=== PATIENT | male | born 1940 | race Caucasian/White ===

== ENCOUNTER 2016-07-04 08:03 | Inpatient (IN) | payer OTHER ==
[~2016-07-04] VITALS: Ht 188 cm; Wt 92.1 kg
[~2016-07-04 08:03] MED LIST: /THIA10TA PO; ALLO100T OR; ASPI325T OR; B COCAP5 PO; FOLI1TAB PO; HYDR12.55 PO; INDO50CA2 OR; IRON CR PO; LISI40TA OR; LOPR50TA OR; LOSA50TA20 PO; MULTIVIT PO; NORV5TAB PO; OMEP20TA7 OR; PERC5TAB8 PO; POTASSIUM GLUCONATE PO; SIMV20TA2 OR; SIMVPOW2 PO
[2016-07-04] MEDS ORDERED: SYMBICORT (08:28)
[2016-07-04] MEDS ORDERED: FURO40TA2 (08:28)
[2016-07-04] MEDS ORDERED: DOXY100C37 (08:28)
[2016-07-04] MEDS ORDERED: METO50TA2 (08:28)
[2016-07-04] MEDS ORDERED: SIMV20TA2 (08:28)
[2016-07-04] MEDS ORDERED: HYDR-4267 (08:28)
[2016-07-04] MEDS ORDERED: ALLO15TA (08:28)
[2016-07-04] MEDS ORDERED: VITA200016 PO (08:28)
[2016-07-04] MEDS ORDERED: ALBU17IN (08:28)
[2016-07-04 09:12] LABS: BASO # 0.1 K/mm3 (0.0-0.2); BASO % 0.8 % (0.0-1.0); EOS # 0.3 K/mm3 (0.0-0.50); EOS % 4.1 % (0.0-3.0); LARGE UNSTAINED CELL # 0.3 K/mm3 (0.0-0.4); LARGE UNSTAINED CELL % 4.7 % (0.0-4.0); LYMPH # 3.4 K/mm3 (1.5-4.5); LYMPH % 48.6 % (24.0-44.0); MEAN CORPUSCULAR HEMOGLOBIN 31.9 pg (27.0-33.0); MEAN CORPUSCULAR HGB CONC 31.5 g/dl (32.0-36.5); MEAN CORPUSCULAR VOLUME 101.2 fl (80.0-96.0); MONO # 0.3 K/mm3 (0.0-0.8); NEUTROPHILS # 2.6 K/mm3 (1.8-7.7); NEUTROPHILS % 36.9 % (36.0-66.0); PLATELET COUNT, AUTOMATED 339 k/mm3 (150-450); RED CELL DISTRIBUTION WIDTH 14.4 % (11.5-14.5); WHITE BLOOD COUNT 6.9 K/mm3 (4.0-10.0)
[2016-07-04 09:25] LABS: BACTERIA, URINE NONE SEEN; HYALINE CAST, URINE NONE SEEN /lpf (0-1); MICROSCOPIC EXAM PERFORMED; MICROSCOPIC INDICATED? MAN YES (NO); RBC, URINE TNTC /hpf (0-3); SQUAMOUS EPITHELIAL CELL URINE NONE SEEN /hpf (SMALL AMT)
[2016-07-04 09:38] LABS: ALBUMIN 3.1 GM/DL (3.2-5.2); ALBUMIN/GLOBULIN RATIO 0.54 (1.00-1.93); BILIRUBIN,DIRECT 0.1 MG/DL (0.0-0.2); BILIRUBIN,TOTAL 0.4 MG/DL (0.2-1.0); CALCIUM LEVEL 8.5 MG/DL (8.8-10.2); CREATININE FOR GFR 4.89 MG/DL (0.70-1.30); GLOMERULAR FILTRATION RATE 12.4 (>42); POTASSIUM SERUM 4.8 MEQ/L (3.5-5.1); TOTAL PROTEIN 8.8 GM/DL (6.4-8.2)
[2016-07-04 09:40] LABS: INR 1.15
--- NOTE | 2016-07-04 10:54 | REP ---
CT abdomen pelvis without IV or oral contrast: Renal stone protocol. History: Hematuria. Comparison study is from November 04, 2015. CT findings: Digital preliminary conference translator radiograph shows vascular calcification. The patient is apparently unable to raise his arms. There is no evidence of infiltrate or mass in the visualized lung leal. No pleural effusion is seen. The liver and spleen are normal in size, homogeneous in texture. There are a few granulomatous calcifications in the spleen again noted. There is also a granulomatous calcification in the left lobe of the liver unchanged from the comparison study. No adrenal lesion is seen on either side. There is pancolonic diverticulosis without CT evidence of diverticulitis. Extensive vascular calcification is noted. Prostate gland is prominent and somewhat eccentric in the lower pelvis shifted somewhat to the left. The urinary bladder is quite distended consistent with bladder outlet obstruction. There is diffuse bladder wall thickening. The bladder fills the pelvis to the level of the umbilicus. There is a bilateral moderate to marked hydronephrosis and hydroureter. This is new on the right when compared with the prior study of November 04, 2015. It is increased significantly on the left compared to the prior study. There are multiple bilateral renal cortical cysts again seen unchanged. No intrarenal calculus is observed on either side. 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 No left ureteral calculus is observed. There are some phleboliths adjacent to the distal ureter on the right. No right ureteral calculus is seen. Both ureterovesical junctions are somewhat elevated due to bladder dilation and prostate enlargement. No pelvic mass or adenopathy is appreciated. No evidence of free air or abnormal fluid collection. Impression: Findings consistent with bladder outlet obstruction with marked distension of the urinary bladder and marked bilateral hydronephrosis and hydroureter. This is new on the right and increased on the left when compared with the November 04, 2015 prior study. No urinary tract calculus seen. Prostate enlargement. Pancolonic diverticulosis. Signed by Blas Simon MD 07/04/2016 03:37 P
[2016-07-04] MEDS ORDERED: LIDOCAINE 2% 5ML JELLY UROJET TOP ONE (11:45)
[2016-07-04] MEDS ORDERED: LIDOCAINE VISCOUS 2% SOLN 15ML UDC TOP ONE (11:45)
[2016-07-04] MEDS ORDERED: ALBU17IN INH (12:09)
[2016-07-04] MEDS ORDERED: ALLO15TA PO ×2 (12:10→12:12)
[2016-07-04] MEDS ORDERED: HYDR-4267 PO (12:15)
[2016-07-04] MEDS ORDERED: METO50TA2 PO (12:15)
[2016-07-04] MEDS ORDERED: FURO40TA2 PO (12:15)
[2016-07-04] MEDS ORDERED: [UNRECOGNIZED DRUG - CODE] PO (12:15)
[2016-07-04] MEDS ORDERED: OMEP20CA3 PO (12:16)
[2016-07-04] MEDS ORDERED: ZOCO20TA PO (12:16)
[2016-07-04] MEDS ORDERED: VITATAB11 PO (12:18)
[2016-07-04] MEDS ORDERED: SYMB16INH INH (12:19)
[2016-07-04] MEDS ORDERED: MAGN500T5 PO (12:20)
[2016-07-04] MEDS ORDERED: ZYLO300T4 PO (12:22)
[2016-07-04] MEDS: NS 1,000 ML IV SCH (12:25)
[2016-07-04] MEDS ORDERED: ALBUTEROL 90 MCG/ACT 8GM HFA INHALER INH PRN (12:30)
[2016-07-04] MEDS ORDERED: ONDANSETRON 4MG/2ML VIAL (J2405) IV PRN (12:30)
[2016-07-04 15:30] VITALS: BP 154/99
[2016-07-04 16:00] VITALS: BP 140/88
[2016-07-04] MEDS ORDERED: LORazepam 2 MG TAB PO PRN (16:00)
[2016-07-04 16:42] LABS: CALCIUM LEVEL 8.2 MG/DL (8.8-10.2); CREATININE FOR GFR 4.75 MG/DL (0.70-1.30); GLOMERULAR FILTRATION RATE 12.8 (>42); MAGNESIUM LEVEL 2.4 MG/DL (1.8-2.4); PHOSPHORUS LEVEL 6.8 MG/DL (2.5-4.9); POTASSIUM SERUM 5.1 MEQ/L (3.5-5.1)
--- NOTE | 2016-07-04 16:48 | HPEPDOC ---
Medical History and Physical Date of Admission Jul 04, 2016 at 12:25 History and Physical PRIMARY CARE PROVIDER: Dr. Eduardo Lubin ATTENDING: Paul Richmond MD CHIEF COMPLAINT: Hematuria HISTORY OF PRESENT ILLNESS: This is a 75-year-old male with a past medical history of CAD with NM 3, iron deficiency anemia, hypertension, GERD, gout who presents complaining of hematuria. Patient was apparently complaining of dysuria 1 week ago, seen by his primary care physician, started on doxycycline, which he finished 3 days ago. Patient went to work and lifted something heavy and noted some hematuria. He has been complaining of the frequent urination as well. Patient denies any fever/chills. Does know suprapubic pain. No nausea/vomiting/ upper quadrant or epigastric pain. In the ED patient was noted to have bladder outlet obstruction for which a Laurent catheter was placed. Patient was also noted to have worsening renal function. PAST MEDICAL HISTORY:As per HPI PAST SURGICAL HISTORY: Left shoulder surgery, hernia repair, catheterization 2007 SOCIAL HISTORY: , history of 25 year tobacco abuse. Drinks 6 pack beer daily, with last drink being last night. Worked as a maintenance planner. FAMILY HISTORY: Hypertension ALLERGIES: Please see below. REVIEW OF SYSTEMS: HEENT: Denies sore throat/headache CARDIOVASCULAR: Denies chest pain/palpitations RESPIRATORY: No shortness of breath/cough GASTROINTESTINAL: denies nausea/vomiting GENITOURINARY: + dysuria/urinary urgency. MUSCULOSKELETAL: Denies myalgias/arthralgias NEUROLOGICAL: Denies any focal weakness Rest of ROS negative. HOME MEDICATIONS: Please see below. PHYSICAL EXAMINATION: Vitals: (see below) General: No acute distress, laying comfortably in bed. HEENT: Moist mucous membranes. Neck: No JVD or lymphadenopathy Cardiac: RRR, No murmurs Pulm: Clear to auscultation b/l. No wheezing, rhonchi Abd: NT/ND + BS. Mild suprapubic tenderness. Ext: No edema or cyanosis LABORATORY DATA: See below. IMAGING: CT abd/pelvis 07/04/16 There is no evidence of infiltrate or mass in the visualized lung leal. No pleural effusion is seen. The liver and spleen are normal in size, homogeneous in texture. There are a few granulomatous calcifications in the spleen again noted. There is also a granulomatous calcification in the left lobe of the liver unchanged from the comparison study. No adrenal lesion is seen on either side. There is pancolonic diverticulosis without CT evidence of diverticulitis. Extensive vascular calcification is noted. Prostate gland is prominent and somewhat eccentric in the lower pelvis shifted somewhat to the left. The urinary bladder is quite distended consistent with bladder outlet obstruction. There is diffuse bladder wall thickening. The bladder fills the pelvis to the level of the umbilicus. There is a bilateral moderate to marked hydronephrosis and hydroureter. This is new on the right when compared with the prior study of November 04, 2015. It is increased significantly on the left compared to the prior study. There are multiple bilateral renal cortical cysts again seen unchanged. No intrarenal calculus is observed on either side. 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 No left ureteral calculus is observed. There are some phleboliths adjacent to the distal ureter on the right. No right ureteral calculus is seen. Both ureterovesical junctions are somewhat elevated due to bladder dilation and prostate enlargement. No pelvic mass or adenopathy is appreciated. No evidence of free air or abnormal fluid collection. Impression: Findings consistent with bladder outlet obstruction with marked distension of the urinary bladder and marked bilateral hydronephrosis and hydroureter. This is new on the right and increased on the left when compared with the November 04, 2015 prior study. No urinary tract calculus seen. Prostate enlargement. Pancolonic diverticulosis. MICROBIOLOGY: Please see below. ASSESSMENT/PLAN: 1. Obstructive uropathy, likely from an enlarged prostate. Laurent catheter in place. Flomax started. Appreciate urology input. We'll keep a close eye on urine output as well as electrolytes as patient is prone to postobstructive diuresis. We'll repeat urine ultrasound in 2-3 days to ensure resolution of hydronephrosis and hydroureter. 2. Acute renal failure secondary to #1. Continue IV fluids. Avoid nephrotoxins. Nephrology consulted. 3. Alcohol abuse- last drink last night. Started on Serax, as well as PRN ativan. CIWA protocol. MVI/thiamine/folic acid. 4. History of CAD with NM 3- on aspirin/statin beta lorena 5. GERD- on PPI Lasix on hold for now DVT prophylaxis- heparin subcutaneous Vital Signs Vital Signs Date Time Temp Pulse Resp B/P Pulse Ox O2 Delivery O2 Flow Rate FiO2 07/04/16 15:30 98.1 109 22 154/99 97 Room Air Laboratory Data Labs 24H Laboratory Tests 2 07/04/16 08:51: Aspartate Amino Transf (AST/SGOT) 95H, Alanine Aminotransferase (ALT/SGPT) 77, Alkaline Phosphatase 77, Total Bilirubin 0.4, Direct Bilirubin 0.1, Albumin 3.1L , Albumin/Globulin Ratio 0.54L, Anion Gap 11, White Blood Count 6.9, Red Blood Count 3.33L, Hemoglobin 10.6L, Hematocrit 33.7L, Mean Corpuscular Volume 101.2H , Mean Corpuscular Hemoglobin 31.9, Mean Corpuscular Hemoglobin Concent 31.5L, Red Cell Distribution Width 14.4, Platelet Count 339, Neutrophils (%) (Auto) 36.9, Lymphocytes (%) (Auto) 48.6H, Monocytes (%) (Auto) 5.0, Eosinophils (%) ( Auto) 4.1H, Basophils (%) (Auto) 0.8, Neutrophils # (Auto) 2.6, Lymphocytes # ( Auto) 3.4, Monocytes # (Auto) 0.3, Eosinophils # (Auto) 0.3, Basophils # (Auto) 0.1, Bedside Urine Appearance (LAB) TURBIDH, Bedside Urine Bilirubin (LAB) NEGATIVE, Bedside Urine Blood POSITIVEH, Bedside Urine Color (LAB) AMBERH, Bedside Urine Glucose (UA) NEGATIVE, Bedside Urine Ketones (LAB) NEGATIVE, Bedside Urine Leukocyte Esterase (L NEGATIVE, Bedside Urine Nitrite (LAB) NEGATIVE, Bedside Urine Protein (LAB) 3+H, Bedside Urine Specific [place] (LAB 1.015, Bedside Urine Urobilinogen (LAB) NORMAL, Bedside Urine pH (LAB) 6.0, Calcium Level 8.5L, Glomerular Filtration Rate 12.4L, Large Unclassified Cells # 0.3, Large Unclassified Cells % 4.7H, Lipase 1007H, Prothromb Time International Ratio 1.15, Prothrombin Time 14.8H, Total Protein 8.8H, Urine WBC 7-10H, Urine RBC TNTCH, Urine Squamous Epithelial Cells NONE SEEN, Urine Bacteria NONE SEEN, Urine Hyaline Casts NONE SEEN, Urine Sediment Examination PERFORMED 07/04/16 16:03: CBC/BMP Laboratory Tests 07/04/16 08:51 Red Blood Count 3.33 L, Mean Corpuscular Volume 101.2 H, Mean Corpuscular Hemoglobin 31.9, Mean Corpuscular Hemoglobin Concent 31.5 L, Red Cell Distribution Width 14.4, Neutrophils (%) (Auto) 36.9, Lymphocytes (%) (Auto) 48.6 H, Monocytes (%) (Auto) 5.0, Eosinophils (%) (Auto) 4.1 H, Basophils (%) ( Auto) 0.8, Neutrophils # (Auto) 2.6, Lymphocytes # (Auto) 3.4, Monocytes # (Auto ) 0.3, Eosinophils # (Auto) 0.3, Basophils # (Auto) 0.1 Home Medications Scheduled Allopurinol (Allopurinol) 150 Mg Halftab 150 MG PO Q2D EVERY OTHER DAY ALTERNATING WITH A FULL TAB Aspirin (Yogesh Advanced Aspirin Re) 325 Mg Tab 325 MG PO QPM B1/B2/B3/B5/B6 (Vitamin B Complex) 1 Tab Tab 1 TAB PO DAILY Ferrous Sulfate (Ferrous Sulfate) 325 Mg Tab 325 MG PO DAILY Folic Acid (Folic Acid) 1 Mg Tab 1 MG PO DAILY Hydralazine HCl (Hydralazine HCl) 50 Mg Tab 50 MG PO BID Magnesium Oxide (Magnesium) 500 Mg Tab 500 MG PO BID Metoprolol Tartrate (Metoprolol Tartrate) 50 Mg Tab 50 MG PO QPM Multivitamins *[facility] STOCKED* (Thera M Plus *[facility] STOCKED*) 1 Tab Tab 1 TAB PO DAILY Omeprazole (Omeprazole) 20 Mg Cap 20 MG PO QPM Simvastatin (Zocor) 20 Mg Tab 20 MG PO QPM Tamsulosin Hydrochloride (Flomax) 0.4 Mg Cap 0.4 MG PO DAILY Thiamine Hcl (Thiamine Hcl) 100 Mg Tab 100 MG PO BID Vitamin D (Vitamin D) 2,000 Unit Cap 2,000 UNIT PO DAILY Scheduled PRN Albuterol Sulfate (Ventolin Hfa) 200 Puff/8 Gm Aers 2 PUFF INH Q4H PRN PRN SHORTNESS OF BREATH Allergies Coded Allergies: No Known Drug Allergy (Verified Allergy, Unknown, 06/21/12) PAUL RICHMOND MD Jul 04, 2016 16:47 PAUL RICHMOND MD Jul 04, 2016 16:47
[2016-07-04 17:04] VITALS: BP 120/62
[2016-07-04] MEDS: OXAZEPAM 15 MG CAP PO SCH ×2 (17:09→22:00)
--- NOTE | 2016-07-04 19:01 | SMCUROLCON ---
Urology Consultation General Date of Consultation 07/04/16 Reason For Consultation This patient is seen for Acute Kidney Failure. History of Present Illness This is a 75 y/o M w/ a PMH significant for CAD, COPD, GERD, CKD, and bladder cancer (s/p TURBT in 2012), admitted to the hospital for ALICIA. The patient presented to the ER and was found to be in urinary retention. A CT A/P was obtained and was notable for a severely distended bladder and severe b/l hydroureteronephrosis. His serum Cr was elevated at 4.9. The last Cr in our system was 3 from 12/2015. The patient noted the onset of voiding difficulty about a week ago. His stream progressively became weaker until he presented today noting that he could barely void. He is not on any medications for his prostate or bladder. He denied going into urinary retention previously. Of note, the patient's last surveillance cystoscopy for bladder cancer was in May 2013. He was found to have a bladder cancer recurrence at that time and surgery was recommended. He refused to proceed w/ surgery or f/u. Per office records multiple attempts were made to contact him and the patient never called back. Past Medical History Medical History see HPI Surgical Hstory TURBT, cardiac cath x2 Medications Current Medications Current Medications Albuterol Sulfate (Proventil, Ventolin Hfa) 2 puff Q4H PRN INH SHORTNESS OF BREATH; Start 07/04/16 at 12:30; Stop 08/03/16 at 12:29 Aspirin (Aspirin) 325 mg QPM PO ; Start 07/04/16 at 21:00; Stop 08/03/16 at 20: 59 Folic Acid (Folic Acid) 1 mg DAILY PO ; Start 07/04/16 at 09:00; Stop 08/03/16 at 08:59 Home Med ASDIRECTED XX ; Start 07/04/16 at 12:30; Stop 07/04/16 at 12:30; Status DC Hydralazine HCl (Apresoline) 50 mg BID PO ; Start 07/04/16 at 21:00; Stop at 20:59 Lorazepam (Ativan) 2 mg ASDIRECTED PRN PO SEE PROTOCOL; Start 07/04/16 at 16:00 ; Stop 07/11/16 at 15:59 Metoprolol Tartrate (Lopressor) 50 mg QPM PO ; Start 07/04/16 at 21:00; Stop at 20:59 Multivitamins (Theragram-M) 1 tab DAILY PO ; Start 07/04/16 at 09:00; Stop 08/03 at 08:59 Omeprazole (PriLOSEC) 20 mg QPM PO ; Start 07/04/16 at 21:00; Stop 08/03/16 at 20:59 Ondansetron HCl (ZOFRAN INJection) 4 mg Q6HP PRN IV NAUSEA OR VOMITING; Start 07/04/16 at 12:30; Stop 08/03/16 at 12:29 Oxazepam (Serax) 15 mg Q8H PO Last administered on 07/04/16 17:09; Start 07/04 at 14:00; Stop 07/11/16 at 13:59 Simvastatin (Zocor) 20 mg QPM PO ; Start 07/04/16 at 21:00; Stop 08/03/16 at 20: 59 Sodium Chloride (Nacl 0.9%) 1,000 ml @ 60 mls/hr [id number] IV Last administered on 07/04/16 12:25; Start 07/04/16 at 12:25; Stop 08/03/16 at 12:24 Tamsulosin HCl (Flomax) 0.4 mg DAILY PO ; Start 07/04/16 at 09:00; Stop at 08:59 Thiamine HCl (Thiamine HCl) 100 mg BID PO ; Start 07/04/16 at 21:00; Stop at 12:00 Vitamin D (Vitamin D) 2,000 units DAILY PO ; Start 07/05/16 at 09:00; Stop 08/04 at 08:59 Allergies Allergies: Coded Allergies: No Known Drug Allergy (Verified Allergy, Unknown, 06/21/12) Review of Systems General: Denies: Chills, Night Sweats Pulmonary: Denies: Cough, Dyspnea Cardiovascular: Denies Chest Pain, Denies Palpitations Gastrointestinal: Reports: Abdominal Pain Genitourinary: Reports: Retention Musculoskeletal: Denies: Back Pain, Neck Pain Psych: Reports: Mood Normal Physical Examination General Exam: : No Acute Distress Chest Exam: : Clear to auscultation Heart Exam: : Rate Normal: Regular Rhythm Abdomen Exam: : Soft Male Exam catheter in place, draining light pink urine Skin Exam: : Nl turgor and temperature Neuro Exam: : Normal Speech Psych Exam: : Mental status NL Vital Signs/I&O Vital Signs Date Time Temp Pulse Resp B/P Pulse Ox O2 Delivery O2 Flow Rate FiO2 07/04/16 17:04 96 120/62 07/04/16 16:00 98.4 20 97 Room Air Laboratory Data 24H Labs Laboratory Tests 2 07/04/16 08:51: Aspartate Amino Transf (AST/SGOT) 95H, Alanine Aminotransferase (ALT/SGPT) 77, Alkaline Phosphatase 77, Total Bilirubin 0.4, Direct Bilirubin 0.1, Albumin 3.1L , Albumin/Globulin Ratio 0.54L, Anion Gap 11, White Blood Count 6.9, Red Blood Count 3.33L, Hemoglobin 10.6L, Hematocrit 33.7L, Mean Corpuscular Volume 101.2H , Mean Corpuscular Hemoglobin 31.9, Mean Corpuscular Hemoglobin Concent 31.5L, Red Cell Distribution Width 14.4, Platelet Count 339, Neutrophils (%) (Auto) 36.9, Lymphocytes (%) (Auto) 48.6H, Monocytes (%) (Auto) 5.0, Eosinophils (%) ( Auto) 4.1H, Basophils (%) (Auto) 0.8, Neutrophils # (Auto) 2.6, Lymphocytes # ( Auto) 3.4, Monocytes # (Auto) 0.3, Eosinophils # (Auto) 0.3, Basophils # (Auto) 0.1, Bedside Urine Appearance (LAB) TURBIDH, Bedside Urine Bilirubin (LAB) NEGATIVE, Bedside Urine Blood POSITIVEH, Bedside Urine Color (LAB) AMBERH, Bedside Urine Glucose (UA) NEGATIVE, Bedside Urine Ketones (LAB) NEGATIVE, Bedside Urine Leukocyte Esterase (L NEGATIVE, Bedside Urine Nitrite (LAB) NEGATIVE, Bedside Urine Protein (LAB) 3+H, Bedside Urine Specific [place] (LAB 1.015, Bedside Urine Urobilinogen (LAB) NORMAL, Bedside Urine pH (LAB) 6.0, Calcium Level 8.5L, Glomerular Filtration Rate 12.4L, Large Unclassified Cells # 0.3, Large Unclassified Cells % 4.7H, Lipase 1007H, Prothromb Time International Ratio 1.15, Prothrombin Time 14.8H, Total Protein 8.8H, Urine WBC 7-10H, Urine RBC TNTCH, Urine Squamous Epithelial Cells NONE SEEN, Urine Bacteria NONE SEEN, Urine Hyaline Casts NONE SEEN, Urine Sediment Examination PERFORMED 07/04/16 16:03: Anion Gap 13, Calcium Level 8.2L, Glomerular Filtration Rate 12.8L, Blood Urea Nitrogen 83H, Creatinine 4.75H, Sodium Level 138, Potassium Level 5.1, Chloride Level 109H, Carbon Dioxide Level 16L, Magnesium Level 2.4, Phosphorus Level 6.8H CBC/BMP Laboratory Tests 07/04/16 08:51 Red Blood Count 3.33 L, Mean Corpuscular Volume 101.2 H, Mean Corpuscular Hemoglobin 31.9, Mean Corpuscular Hemoglobin Concent 31.5 L, Red Cell Distribution Width 14.4, Neutrophils (%) (Auto) 36.9, Lymphocytes (%) (Auto) 48.6 H, Monocytes (%) (Auto) 5.0, Eosinophils (%) (Auto) 4.1 H, Basophils (%) ( Auto) 0.8, Neutrophils # (Auto) 2.6, Lymphocytes # (Auto) 3.4, Monocytes # (Auto ) 0.3, Eosinophils # (Auto) 0.3, Basophils # (Auto) 0.1 07/04/16 16:03 Calcium Level 8.2 L Assessment This is a 75 y/o M w/ urinary retention and ALICIA. His urinary retention is likely due to BPH. The b/l hydro and ALICIA should improve now that a catheter has been placed. Plan - continue w/ indwelling catheter and monitor UOP and electrolytes closely as the patient might develop postobstructive diuresis - recommend starting flomax - when he is discharged he should be sent home w/ the catheter in place - we will perform catheter removal and voiding trial in our office and will discuss resuming care for his history of bladder cancer at that time AMI BHAKTA MD Jul 04, 2016 19:01
[2016-07-04 20:00] VITALS: BP 150/88
[2016-07-04] MEDS: TAMSULOSIN 0.4 MG CAP PO SCH (20:12)
[2016-07-04] MEDS: **hydrALAZINE** 50 MG TAB PO SCH (20:13)
[2016-07-04] MEDS: ASPIRIN 325 MG TAB PO SCH (20:13)
[2016-07-04] MEDS: MULTIVITAMINS/MINERALS THERAP 1 TAB PO SCH (20:13)
[2016-07-04] MEDS: METOPROLOL TART 50 MG TAB PO SCH (20:13)
[2016-07-04] MEDS: THIAMINE 100 MG TAB PO SCH (20:13)
[2016-07-04] MEDS: OMEPRAZOLE 20 MG CAP PO SCH (20:13)
[2016-07-04] MEDS: SIMVASTATIN 20 MG TAB PO SCH (20:14)
[2016-07-04] MEDS: FOLIC ACID 1 MG TAB PO SCH (20:15)
--- NOTE | 2016-07-04 21:52 | CR ---
DATE OF CONSULTATION: 07/04/2016 REASON FOR CONSULTATION: Acute renal failure and bilateral hydronephrosis in this gentleman with history of chronic kidney disease and multiple other medical problems. HISTORY OF PRESENT ILLNESS: Mr. 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 He had transurethral resection of the bladder tumor (TURBT) done in 2012 and did have a cystoscopy following that in 2013; however, lost to followup. He does follow in our office for chronic kidney disease and his baseline creatinine is about 3.0 mg/dL. His last CAT scan of abdomen and pelvis was done in 10/2015, which did not show any evidence of hydronephrosis. He is known to have a pelvic left kidney and normal positioned right kidney. Patient developed urinary retention and hematuria due to which he came to emergency room and found to have a distended bladder with bilateral hydronephrosis and hydroureter. He is admitted and nephrology consultation was requested, as his kidney function is much worse with creatinine about 4.9 mg/dL. PAST MEDICAL AND SURGICAL HISTORY: Significant for: 1. Coronary artery disease with prior myocardial infarction ([place]). 2. Hypertension. 3. Gout. 4. Stage III to stage IV chronic kidney disease. 5. Gastroesophageal reflux disease. 6. History of anemia. 7. History of bladder tumor, status post transurethral resection of the bladder tumor (TURBT). 8. Hyperlipidemia. 9. Hyperlipidemia. MEDICATIONS: His medications include: - allopurinol 300 mg and 150 mg on alternate days. - aspirin 325 mg daily - multivitamin one tablet daily - furosemide 40 mg daily - hydralazine 50 mg twice a day - magnesium oxide 500 mg twice a day - metoprolol 50 mg daily - omeprazole 20 mg daily - simvastatin 20 mg daily - vitamin D 2000 units daily ALLERGIES: Patient has no known drug allergies. PERSONAL AND SOCIAL HISTORY: Patient is . He drinks six packs of beers a day and has been smoking for at least the last 25 years. He is retired. FAMILY HISTORY: Negative for end-stage renal disease and he does have family history for hypertension. PAST SURGICAL HISTORY: Significant for: 1. History of transurethral resection of the bladder tumor (TURBT). 2. History of left shoulder surgery. 3. Hernia repair. 4. History of cardiac catheterization with angioplasty. REVIEW OF SYSTEMS: Patient is significantly hard of hearing. He denies any fever or chills. Nose and throat are unremarkable. CARDIOVASCULAR SYSTEM: Negative for dyspnea or chest pain. RESPIRATORY SYSTEM: Negative for cough or hemoptysis. He does have history of smoking-induced chronic lung disease. GASTROINTESTINAL (GI) SYSTEM: Negative for nausea, vomiting, or diarrhea. GENITOURINARY () SYSTEM: As per history of present illness. Patient currently has a Laurent catheter in place, which is draining dark brown urine with some hematuria. ENDOCRINE SYSTEM: Negative for diabetes. There is no history of thyroid problems. HEMATOLOGICAL SYSTEM: Negative for any chronic anticoagulation. PSYCHOSOCIAL SYSTEM: Negative for depression or anxiety. NEUROLOGICAL SYSTEM: Negative for seizures or stroke. MUSCULOSKELETAL SYSTEM: Negative for significant arthritis. There is no history of nonsteroidal anti-inflammatory drug (NSAID) use. SKIN: Negative for rash or ulcers. PHYSICAL EXAMINATION: Elderly gentleman laying in the bed without any acute distress. Temperature 98.4 degrees Fahrenheit, heart at 96 per minute and respiratory rate 20 per minute. Blood pressure 120/62 mmHg and oxygen saturation 97% on room air. Head is atraumatic. Pupils are equal and reactive to light and sclerae is anicteric. Neck is supple and without any jugular venous distention (JVD) or thyroid enlargement. There are no abnormal cervical lymph nodes palpable. Heart examination reveals tachycardia with regular heart sounds. There is no pericardial friction rub. Lungs sound clear to auscultation bilaterally. Abdomen is soft and nontender. There is no palpable organomegaly and bowel sounds are normal. At present, no distended urinary bladder palpable. Extremities have no cyanosis or clubbing. Skin has no rash or ulcers. Neurologically, he has no focal deficits. He is significantly hard of hearing. LABORATORY DATA: Today, WBC count is 6.9, hemoglobin 10.6, hematocrit 33.7. Platelets 229. Sodium 135, potassium 4.8, CO2, 19, BUN 82, and creatinine 4.89. Calcium level 8.5. Total protein 8.8 and albumin 3.1. Urinalysis showed turbid appearance with 3+ protein and positive blood, too numerous too count red blood cells and 7-10 white blood cells. Imaging included abdominal and pelvic CAT scan, which is reviewed independently. Patient has a pelvic left kidney with bilateral hydronephrosis and hydroureter. Urinary bladder is markedly distended. Prostate is enlarged and there is no urinary tract stone. PROBLEMS: 1. Acute renal failure superimposed on chronic kidney disease. Patient is known to have at least stage III or early stage IV of chronic kidney disease at baseline, with serum creatinine about 3.0 mg/dL back in 12/2015. Acute renal failure is related to obstructive uropathy and is likely to improve now that he has a Laurent catheter placed. Patient is likely to have postobstructive diuresis and will need intravenous (IV) fluid hydration. Will increase his IV fluid to 100 mL per hour. 2. Metabolic acidosis. He does have mild metabolic acidosis related to acute on chronic kidney disease. We will watch at present and see if it improves as his kidney function improves. I will hold off on sodium bicarbonate at this point. His renal function will be checked again in the morning. 3. History of bladder tumor, status post transurethral resection of the bladder tumor (TURBT). Patient will need a urology followup, most likely as an outpatient for another cystoscopy to rule out any recurrence of bladder tumor. 4. Enlarged prostate with urinary obstruction. Patient is being started on Flomax 0.4 mg at bedtime. He will keep his Laurent catheter for at lease a few weeks and will be followed up as an outpatient with urology. 5. Hypertension. Blood pressure is reasonably well-controlled on current antihypertensive medications. We will watch his blood pressure closely as he is being hydrated. 6. Anemia. He does have mild anemia, which is most likely related to his chronic kidney disease. Will check his iron studies tomorrow morning. Thank you for involving me in the care of Mr. Ponce. I will follow him along with you.
[2016-07-05] VITALS (7 sets, daily range): BP systolic 104–156; BP diastolic 64–80
[2016-07-05] MEDS: NS 1,000 ML IV SCH ×3 (00:33→20:49)
[2016-07-05] MEDS: OXAZEPAM 15 MG CAP PO SCH ×3 (05:30→20:50)
[2016-07-05 05:59] LABS: BASO % 0.7 % (0.0-1.0); EOS # 0.3 K/mm3 (0.0-0.50); EOS % 5.4 % (0.0-3.0); LARGE UNSTAINED CELL # 0.3 K/mm3 (0.0-0.4); LARGE UNSTAINED CELL % 5.3 % (0.0-4.0); LYMPH # 2.3 K/mm3 (1.5-4.5); LYMPH % 45.9 % (24.0-44.0); MEAN CORPUSCULAR HEMOGLOBIN 31.8 pg (27.0-33.0); MEAN CORPUSCULAR HGB CONC 31.2 g/dl (32.0-36.5); MONO # 0.3 K/mm3 (0.0-0.8); MONO % 5.7 % (0.0-5.0); NEUTROPHILS # 1.8 K/mm3 (1.8-7.7); NEUTROPHILS % 36.9 % (36.0-66.0); PLATELET COUNT, AUTOMATED 302 k/mm3 (150-450); RED CELL DISTRIBUTION WIDTH 14.7 % (11.5-14.5)
[2016-07-05 06:14] LABS: ALBUMIN 2.6 GM/DL (3.2-5.2); ALBUMIN/GLOBULIN RATIO 0.54 (1.00-1.93); BILIRUBIN,TOTAL 0.3 MG/DL (0.2-1.0); CALCIUM LEVEL 7.9 MG/DL (8.8-10.2); CREATININE FOR GFR 4.44 MG/DL (0.70-1.30); GLOMERULAR FILTRATION RATE 13.8 (>42); MAGNESIUM LEVEL 2.3 MG/DL (1.8-2.4); POTASSIUM SERUM 4.4 MEQ/L (3.5-5.1); TOTAL PROTEIN 7.4 GM/DL (6.4-8.2)
[2016-07-05] MEDS: MULTIVITAMINS/MINERALS THERAP 1 TAB PO SCH (08:36)
[2016-07-05] MEDS: FOLIC ACID 1 MG TAB PO SCH (08:37)
[2016-07-05] MEDS: TAMSULOSIN 0.4 MG CAP PO SCH (08:37)
[2016-07-05] MEDS: VITAMIN D 1,000 INTERNATIONAL UNITS TABLET PO SCH (08:37)
[2016-07-05] MEDS: **hydrALAZINE** 50 MG TAB PO SCH ×2 (08:37→20:50)
[2016-07-05] MEDS: THIAMINE 100 MG TAB PO SCH ×2 (08:37→20:49)
--- NOTE | 2016-07-05 13:16 | IPNPDOC ---
Text Note Date of Service The patient was seen on 07/05/16. NOTE Subjective: Feeling well. Denies any complaints. Suprapubic pain improved. PHYSICAL EXAMINATION: Vitals: (see below) General: No acute distress, laying comfortably in bed. HEENT: Moist mucous membranes. Neck: No JVD or lymphadenopathy Cardiac: RRR, No murmurs Pulm: Clear to auscultation b/l. No wheezing, rhonchi Abd: NT/ND + BS. Ext: No edema or cyanosis LABORATORY DATA: See below. IMAGING: CT abd/pelvis 07/04/16 There is no evidence of infiltrate or mass in the visualized lung leal. No pleural effusion is seen. The liver and spleen are normal in size, homogeneous in texture. There are a few granulomatous calcifications in the spleen again noted. There is also a granulomatous calcification in the left lobe of the liver unchanged from the comparison study. No adrenal lesion is seen on either side. There is pancolonic diverticulosis without CT evidence of diverticulitis. Extensive vascular calcification is noted. Prostate gland is prominent and somewhat eccentric in the lower pelvis shifted somewhat to the left. The urinary bladder is quite distended consistent with bladder outlet obstruction. There is diffuse bladder wall thickening. The bladder fills the pelvis to the level of the umbilicus. There is a bilateral moderate to marked hydronephrosis and hydroureter. This is new on the right when compared with the prior study of November 04, 2015. It is increased significantly on the left compared to the prior study. There are multiple bilateral renal cortical cysts again seen unchanged. No intrarenal calculus is observed on either side. 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 No left ureteral calculus is observed. There are some phleboliths adjacent to the distal ureter on the right. No right ureteral calculus is seen. Both ureterovesical junctions are somewhat elevated due to bladder dilation and prostate enlargement. No pelvic mass or adenopathy is appreciated. No evidence of free air or abnormal fluid collection. Impression: Findings consistent with bladder outlet obstruction with marked distension of the urinary bladder and marked bilateral hydronephrosis and hydroureter. This is new on the right and increased on the left when compared with the November 04, 2015 prior study. No urinary tract calculus seen. Prostate enlargement. Pancolonic diverticulosis. MICROBIOLOGY: Please see below. ASSESSMENT/PLAN: 1. Obstructive uropathy, likely from an enlarged prostate vs recurrent bladder cancer. Laurent catheter in place. Flomax started. Appreciate urology/ nephrology input. We'll keep a close eye on urine output as well as electrolytes as patient is prone to postobstructive diuresis. 2. Acute renal failure secondary to #1. Continue IV fluids. Avoid nephrotoxins. Nephrology consulted. 3. Alcohol abuse- last drink last night. Started on Serax, as well as PRN ativan. CIWA protocol. MVI/thiamine/folic acid. 4. History of CAD with CT 3- on aspirin/statin beta lorena 5. GERD- on PPI Lasix on hold for now DVT prophylaxis- heparin subcutaneous VS,Fishbone, I+O VS, Fishbone, I+O Laboratory Tests 07/04/16 16:03 Calcium Level 8.2 L 07/05/16 05:36 Calcium Level 7.9 L, Aspartate Amino Transf (AST/SGOT) 58 H, Alanine Aminotransferase (ALT/SGPT) 56, Alkaline Phosphatase 60, Total Bilirubin 0.3, Total Protein 7.4, Albumin 2.6 L, Red Blood Count 2.98 L, Mean Corpuscular Volume 102.0 H, Mean Corpuscular Hemoglobin 31.8, Mean Corpuscular Hemoglobin Concent 31.2 L, Red Cell Distribution Width 14.7 H, Neutrophils (%) (Auto) 36.9 , Lymphocytes (%) (Auto) 45.9 H, Monocytes (%) (Auto) 5.7 H, Eosinophils (%) ( Auto) 5.4 H, Basophils (%) (Auto) 0.7, Neutrophils # (Auto) 1.8, Lymphocytes # ( Auto) 2.3, Monocytes # (Auto) 0.3, Eosinophils # (Auto) 0.3, Basophils # (Auto) 0.0 Vital Signs Date Time Temp Pulse Resp B/P Pulse Ox O2 Delivery O2 Flow Rate FiO2 07/05/16 12:00 96.5 89 20 120/73 98 Room Air 07/05/16 08:00 2.0 I&O- Last 24 Hours up to 6 AM 07/05/16 06:00 Intake Total 820 ml Output Total 1800 ml Balance -980 ml PAUL RICHMOND MD Jul 05, 2016 13:16 PAUL RICHMOND MD Jul 05, 2016 13:16
[2016-07-05] MEDS: SIMVASTATIN 20 MG TAB PO SCH (20:49)
[2016-07-05] MEDS: OMEPRAZOLE 20 MG CAP PO SCH (20:50)
[2016-07-05] MEDS: ASPIRIN 325 MG TAB PO SCH (20:50)
[2016-07-05] MEDS: METOPROLOL TART 50 MG TAB PO SCH (20:50)
--- NOTE | 2016-07-05 22:05 | IPN ---
DATE: 07/05/2016 Mr. Ponce is seen this morning at his bedside. He is lying in the bed comfortably. His Laurent catheter is draining slightly dark grayish urine. There is no blood visible at present. The patient denies any dyspnea, chest pain, nausea or vomiting. He is quite hard of hearing and a poor historian. On physical examination, temperature 97.2 degrees Fahrenheit, heart rate 72 per minute and respiratory rate 20 per minute. Blood pressure 108/72 mmHg and oxygen saturation 99% on 2 liters oxygen. Head is atraumatic. Ears, nose and throat are unremarkable. Pupils are equal and reactive to light and sclera is anicteric. Neck is supple and without jugular venous distention (JVD) or thyroid enlargement. Heart sounds are regular. Lungs clear to auscultation. Abdomen is soft and nontender and bowel sounds are normal. Extremities have no cyanosis or clubbing. Skin has no rash or ulcers. Neurologically, he is awake and without a focal deficit. Today's laboratories show WBC count 5.0, hemoglobin 9.5 and hematocrit 30.4. Sodium 141 and potassium 4.4. BUN 79 and creatinine 4.44. PROBLEMS 1. Acute renal failure superimposed on chronic kidney disease. Slight improvement in kidney function is noted. The patient has no uremic symptoms and electrolytes are within normal range. We will continue to monitor his kidney function on a daily basis. 2. Metabolic acidosis. Slight improvement since yesterday. No need for sodium bicarbonate at this point. We will monitor his renal profile again tomorrow morning. 3. Bilateral hydronephrosis and urinary retention. The patient currently has a Laurent catheter which is draining relatively clear urine. He will be discharged with Laurent catheter and follow up with urology as an outpatient. 4. Iron deficiency anemia. His iron studies show a deficiency of iron. He does have anemia and I suggest to start with oral iron supplement. DISPOSITION: From a renal standpoint, the patient is likely to be ready for discharge in the next 24 hours. He can be followed up as an outpatient by urology and by our office. I have discussed with nursing staff.
[2016-07-06 04:45] VITALS: BP 112/74
[2016-07-06] MEDS: OXAZEPAM 15 MG CAP PO SCH (05:16)
[2016-07-06 05:46] LABS: BASO # 0.1 K/mm3 (0.0-0.2); BASO % 0.9 % (0.0-1.0); EOS # 0.3 K/mm3 (0.0-0.50); EOS % 5.3 % (0.0-3.0); LARGE UNSTAINED CELL # 0.4 K/mm3 (0.0-0.4); LYMPH # 2.8 K/mm3 (1.5-4.5); LYMPH % 46.8 % (24.0-44.0); MEAN CORPUSCULAR HEMOGLOBIN 31.7 pg (27.0-33.0); MEAN CORPUSCULAR HGB CONC 30.5 g/dl (32.0-36.5); MEAN CORPUSCULAR VOLUME 104.1 fl (80.0-96.0); MONO # 0.4 K/mm3 (0.0-0.8); NEUTROPHILS # 2.1 K/mm3 (1.8-7.7); PLATELET COUNT, AUTOMATED 285 k/mm3 (150-450); RED CELL DISTRIBUTION WIDTH 14.6 % (11.5-14.5)
[2016-07-06 05:57] LABS: ALBUMIN 2.2 GM/DL (3.2-5.2); ALBUMIN/GLOBULIN RATIO 0.49 (1.00-1.93); BILIRUBIN,TOTAL 0.2 MG/DL (0.2-1.0); CALCIUM LEVEL 7.3 MG/DL (8.8-10.2); CREATININE FOR GFR 4.04 MG/DL (0.70-1.30); GLOMERULAR FILTRATION RATE 15.4 (>42); MAGNESIUM LEVEL 2.1 MG/DL (1.8-2.4); POTASSIUM SERUM 4.5 MEQ/L (3.5-5.1); TOTAL PROTEIN 6.7 GM/DL (6.4-8.2)
[2016-07-06] MEDS: NS 1,000 ML IV SCH (07:21)
[2016-07-06 08:00] VITALS: BP 113/68
[2016-07-06] MEDS ORDERED: FERROUS SULFATE 325MG TAB PO SCH (09:00)
[2016-07-06 09:42] VITALS: BP 113/68
[2016-07-06] MEDS: THIAMINE 100 MG TAB PO SCH (09:42)
[2016-07-06] MEDS: **hydrALAZINE** 50 MG TAB PO SCH (09:42)
[2016-07-06] MEDS: TAMSULOSIN 0.4 MG CAP PO SCH (09:42)
[2016-07-06] MEDS: MULTIVITAMINS/MINERALS THERAP 1 TAB PO SCH (09:43)
[2016-07-06] MEDS: FOLIC ACID 1 MG TAB PO SCH (09:43)
[2016-07-06] MEDS: VITAMIN D 1,000 INTERNATIONAL UNITS TABLET PO SCH (09:43)
[2016-07-06] MEDS ORDERED: THIA100TA PO (12:24)
[2016-07-06] MEDS ORDERED: VITMTA PO (12:24)
[2016-07-06] MEDS ORDERED: FOLI1TAB2 PO (12:24)
[2016-07-06] MEDS ORDERED: FLOM5CAP PO (12:24)
[2016-07-06] MEDS ORDERED: FERR325T PO (12:24)
--- NOTE | 2016-07-06 14:34 | DS.PDOC ---
Discharge Summary General Date of Admission Jul 04, 2016 at 12:25 Date of Discharge 07/06/16 Attending Physician: PAUL RICHMOND MD Specialist/Consultants Involve: MARGARITA ARMANDO MD @ Discharge Summary PROCEDURES PERFORMED DURING STAY: None. ADMITTING/DISCHARGE DIAGNOSES: 1. Obstructive Uropathy 2. Acute Renal Failure 3. Alcohol Abuse; counseled on cessation 4. H/o CAD 5. GERD COMPLICATIONS/CHIEF COMPLAINT: Acute Kidney Failure. HISTORY OF PRESENT ILLNESS/HOSPITAL COURSE: . This is a 75-year-old male with a past medical history of CAD with [place] 3, iron deficiency anemia, hypertension, GERD, gout who presents complaining of hematuria. Patient was apparently complaining of dysuria 1 week ago, seen by his primary care physician, started on doxycycline, which he finished 3 days ago. Patient went to work and lifted something heavy and noted some hematuria. He has been complaining of the frequent urination as well. Patient denies any fever/chills. Does know suprapubic pain. No nausea/vomiting/ upper quadrant or epigastric pain. In the ED patient was noted to have bladder outlet obstruction for which a Laurent catheter was placed. Patient was also noted to have worsening renal function. Patient will need the Laurent catheter in place for 2 weeks while the patient is on Flomax, and will need outpatient follow-up for removal of the catheter. The patient tolerated therapy well and his renal function has started to improve. Patient has been cleared for discharge by nephrology. He'll need to follow-up with urology as well as nephrology outpatient. Patient will be discharged with the Laurent catheter. He is to return to the emergency department if bleeding recurs. DISCHARGE MEDICATIONS: Please see below. ALLERGIES: Please see below. PHYSICAL EXAMINATION ON DISCHARGE: Vitals: (see below) General: No acute distress, laying comfortably in bed. HEENT: Moist mucous membranes. Neck: No JVD or lymphadenopathy Cardiac: RRR, No murmurs Pulm: Clear to auscultation b/l. No wheezing, rhonchi Abd: NT/ND + BS. Ext: No edema or cyanosis LABORATORY DATA: Please see below. IMAGING: CT abd/pelvis 07/04/16 There is no evidence of infiltrate or mass in the visualized lung leal. No pleural effusion is seen. The liver and spleen are normal in size, homogeneous in texture. There are a few granulomatous calcifications in the spleen again noted. There is also a granulomatous calcification in the left lobe of the liver unchanged from the comparison study. No adrenal lesion is seen on either side. There is pancolonic diverticulosis without CT evidence of diverticulitis. Extensive vascular calcification is noted. Prostate gland is prominent and somewhat eccentric in the lower pelvis shifted somewhat to the left. The urinary bladder is quite distended consistent with bladder outlet obstruction. There is diffuse bladder wall thickening. The bladder fills the pelvis to the level of the umbilicus. There is a bilateral moderate to marked hydronephrosis and hydroureter. This is new on the right when compared with the prior study of November 04, 2015. It is increased significantly on the left compared to the prior study. There are multiple bilateral renal cortical cysts again seen unchanged. No intrarenal calculus is observed on either side. 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 No left ureteral calculus is observed. There are some phleboliths adjacent to the distal ureter on the right. No right ureteral calculus is seen. Both ureterovesical junctions are somewhat elevated due to bladder dilation and prostate enlargement. No pelvic mass or adenopathy is appreciated. No evidence of free air or abnormal fluid collection. Impression: Findings consistent with bladder outlet obstruction with marked distension of the urinary bladder and marked bilateral hydronephrosis and hydroureter. This is new on the right and increased on the left when compared with the November 04, 2015 prior study. No urinary tract calculus seen. Prostate enlargement. Pancolonic diverticulosis. PROGNOSIS: Fair ACTIVITY: As tolerated. DIET: Renal diet DISCHARGE PLAN/DISPOSITION: D/c home with home health DISCHARGE INSTRUCTIONS: 1. F/u with PCP, Dr. Lopez, and Dr. Delgadillo in 1-2 weeks. DISCHARGE CONDITION: Stable. TIME SPENT ON DISCHARGE: Greater than 30 minutes. Vital Signs/I&Os Vital Signs Date Time Temp Pulse Resp B/P Pulse Ox O2 Delivery O2 Flow Rate FiO2 07/06/16 09:42 113/68 07/06/16 08:00 97.4 72 20 98 Nasal Cannula 2.0 I&O- Last 24 Hours up to 6 AM 07/06/16 06:00 Intake Total 4040 ml Output Total 2375 ml Balance 1665 ml Laboratory Data Labs 24H Laboratory Tests 2 07/06/16 05:18: Blood Urea Nitrogen 68H, Creatinine 4.04H, Sodium Level 140, Potassium Level 4.5 , Chloride Level 113H, Carbon Dioxide Level 18L, Calcium Level 7.3L, Aspartate Amino Transf (AST/SGOT) 39H, Alanine Aminotransferase (ALT/SGPT) 44, Alkaline Phosphatase 58, Total Bilirubin 0.2, Total Protein 6.7, Albumin 2.2L, Albumin/ Globulin Ratio 0.49L, Anion Gap 9, White Blood Count 6.0, Red Blood Count 2.59L , Hemoglobin 8.2L, Hematocrit 27.0L, Mean Corpuscular Volume 104.1H, Mean Corpuscular Hemoglobin 31.7, Mean Corpuscular Hemoglobin Concent 30.5L, Red Cell Distribution Width 14.6H, Platelet Count 285, Neutrophils (%) (Auto) 35.0L , Lymphocytes (%) (Auto) 46.8H, Monocytes (%) (Auto) 6.0H, Eosinophils (%) (Auto ) 5.3H, Basophils (%) (Auto) 0.9, Neutrophils # (Auto) 2.1, Lymphocytes # (Auto ) 2.8, Monocytes # (Auto) 0.4, Eosinophils # (Auto) 0.3, Basophils # (Auto) 0.1 , Glomerular Filtration Rate 15.4L, Large Unclassified Cells # 0.4, Large Unclassified Cells % 6.0H, Magnesium Level 2.1 CBC/BMP Laboratory Tests 07/06/16 05:18 Calcium Level 7.3 L, Aspartate Amino Transf (AST/SGOT) 39 H, Alanine Aminotransferase (ALT/SGPT) 44, Alkaline Phosphatase 58, Total Bilirubin 0.2, Total Protein 6.7, Albumin 2.2 L, Red Blood Count 2.59 L, Mean Corpuscular Volume 104.1 H, Mean Corpuscular Hemoglobin 31.7, Mean Corpuscular Hemoglobin Concent 30.5 L, Red Cell Distribution Width 14.6 H, Neutrophils (%) (Auto) 35.0 L, Lymphocytes (%) (Auto) 46.8 H, Monocytes (%) (Auto) 6.0 H, Eosinophils (%) ( Auto) 5.3 H, Basophils (%) (Auto) 0.9, Neutrophils # (Auto) 2.1, Lymphocytes # ( Auto) 2.8, Monocytes # (Auto) 0.4, Eosinophils # (Auto) 0.3, Basophils # (Auto) 0.1 Discharge Medications Scheduled Allopurinol (Allopurinol) 150 Mg Halftab 150 MG PO Q2D (Reported) EVERY OTHER DAY ALTERNATING WITH A FULL TAB Aspirin (Yogesh Advanced Aspirin Re) 325 Mg Tab 325 MG PO QPM (Reported) B1/B2/B3/B5/B6 (Vitamin B Complex) 1 Tab Tab 1 TAB PO DAILY (Reported) Ferrous Sulfate (Ferrous Sulfate) 325 Mg Tab 325 MG PO DAILY Folic Acid (Folic Acid) 1 Mg Tab 1 MG PO DAILY Hydralazine HCl (Hydralazine HCl) 50 Mg Tab 50 MG PO BID (Reported) Magnesium Oxide (Magnesium) 500 Mg Tab 500 MG PO BID (Reported) Metoprolol Tartrate (Metoprolol Tartrate) 50 Mg Tab 50 MG PO QPM (Reported) Multivitamins *[facility] STOCKED* (Thera M Plus *[facility] STOCKED*) 1 Tab Tab 1 TAB PO DAILY Omeprazole (Omeprazole) 20 Mg Cap 20 MG PO QPM (Reported) Simvastatin (Zocor) 20 Mg Tab 20 MG PO QPM (Reported) Tamsulosin Hydrochloride (Flomax) 0.4 Mg Cap 0.4 MG PO DAILY Thiamine Hcl (Thiamine Hcl) 100 Mg Tab 100 MG PO BID Vitamin D (Vitamin D) 2,000 Unit Cap 2,000 UNIT PO DAILY (Reported) Scheduled PRN Albuterol Sulfate (Ventolin Hfa) 200 Puff/8 Gm Aers 2 PUFF INH Q4H PRN PRN SHORTNESS OF BREATH (Reported) Allergies Coded Allergies: No Known Drug Allergy (Verified Allergy, Unknown, 06/21/12) PAUL RICHMOND MD Jul 06, 2016 14:34 PAUL RICHMOND MD Jul 06, 2016 14:34
== END 2016-07-06 14:21 | disposition home health service (06) | DRG 468 ==
LOC: M ED 09:42 → M ED INP 12:25 → M PCU 15:07
PROVIDERS: ADMIT Internal Medicine; ATTEND Internal Medicine
DX: N13.9 Obstructive and reflux uropathy, unspecified (principal); E87.2 Acidosis; N17.9 Acute kidney failure, unspecified; N13.30 Unspecified hydronephrosis; D50.9 Iron deficiency anemia, unspecified; E78.5 Hyperlipidemia, unspecified; I12.9 Hypertensive chronic kidney disease with stage 1 through stage 4 chronic kidney disease, or unspecified chronic kidney disease; F10.10 Alcohol abuse, uncomplicated; N18.4 Chronic kidney disease, stage 4 (severe); D63.1 Anemia in chronic kidney disease; K21.9 Gastro-esophageal reflux disease without esophagitis; F17.200 Nicotine dependence, unspecified, uncomplicated; N40.1 Benign prostatic hyperplasia with lower urinary tract symptoms; N13.4 Hydroureter; M10.9 Gout, unspecified; I25.10 Atherosclerotic heart disease of native coronary artery without angina pectoris; Z79.899 Other long term (current) drug therapy; Z80.52 Family history of malignant neoplasm of bladder; Z82.49 Family history of ischemic heart disease and other diseases of the circulatory system; I25.2 Old myocardial infarction

== ENCOUNTER → 2016-07-28 | Outpatient (CLI) | payer OTHER ==
[~2016-07-28] MED LIST changes: +ALBU17IN; +ALBU17IN INH; +ALLO15TA; +ALLO15TA PO; +DOXY100C37; +FERR325T PO; +FLOM5CAP PO; +FOLI1TAB2 PO; +FURO40TA2; +FURO40TA2 PO; +HYDR-4267; +HYDR-4267 PO; +MAGN500T5 PO; +METO50TA2; +METO50TA2 PO; +OMEP20CA3 PO; +SIMV20TA2; +SYMB16INH INH; +SYMBICORT; +THIA100TA PO; +VITA200016 PO; +VITATAB11 PO; +VITMTA PO; +ZOCO20TA PO; +ZYLO300T4 PO; +[UNRECOGNIZED DRUG - CODE] PO
[2016-07-28 13:46] LABS: CALCIUM LEVEL 8.3 MG/DL (8.8-10.2); CREATININE FOR GFR 3.74 MG/DL (0.70-1.30); GLOMERULAR FILTRATION RATE 16.9 (>42); POTASSIUM SERUM 4.9 MEQ/L (3.5-5.1)
[2016-07-28 13:57] LABS: INR 1.04
--- NOTE | 2016-07-28 14:17 | REP ---
CHEST X-RAY: Two views. HISTORY: Retention of urine. Comparison chest x-ray March 24, 2014. FINDINGS: There is a mild interstitial fibrosis pattern noted at the lung bases unchanged. Heart is not enlarged. The aorta is calcific and tortuous. Pulmonary vasculature is not increased. No infiltrate is seen. No significant bony abnormality is seen. IMPRESSION: Vascular calcification and mild bibasilar interstitial fibrosis. No acute abnormality. Signed by Blas Simon MD 07/28/2016 03:07 P
== END ==
LOC: M LAB 12:53
PROVIDERS: ATTEND Nurse Practitioner Women's Health
DX: R33.9 Retention of urine, unspecified (principal); C67.9 Malignant neoplasm of bladder, unspecified; Z01.818 Encounter for other preprocedural examination

== ENCOUNTER → 2016-07-28 | Outpatient (CLI) | payer OTHER ==
--- NOTE | 2016-07-28 15:25 | REP ---
BILATERAL MAMMOGRAM WITH DIAGNOSTIC MAMMOGRAM RIGHT BREAST AND RIGHT BREAST ULTRASOUND: Bilateral mammography performed in the MLO and CC projections. Patient complains of a painful lump on the right. This is located in the retroareolar region. The mammogram shows asymmetric fibroglandular tissue, increased in the right retroareolar region. This is ill-defined and is most consistent with asymmetric right sided gynecomastia. No discrete mass is seen and I see no clustered microcalcifications. Real-time sonographic of the right retroareolar region demonstrates asymmetric fibroglandular tissue compatible with gynecomastia. IMPRESSION: ACR 2 benign. Mammographic and sonographic findings of asymmetric gynecomastia on the right. No suspicious nodule or clustered microcalcifications. BI-RADS/ACR category 2 mammogram. Benign finding(s). Routine annual screening mammography (for women over age 40). This mammogram was interpreted with the aid of an FDA-approved computer-aided detection system. The patient states she/he had a clinical breast exam in 07/2016. The patient letter being requested is M2. Signed by Elver Wood MD 07/28/2016 08:04 P
== END ==
LOC: M RAD 13:40
PROVIDERS: ATTEND Nurse Practitioner Adult Health
DX: N61.1 Abscess of the breast and nipple (principal)
CPT/HCPCS: 76642; G0204

== ENCOUNTER → 2016-07-28 | Outpatient (CLI) | payer OTHER ==
--- NOTE | 2016-07-29 17:12 | ECGEPIP ---
Stationary ECG Study [facility] Test Date: 2016-07-28 Pat Name: ЕКАТЕРИНА BROUSSARD Department: Room: - Gender: M Renal Technician: MARIAH : 1940 Requested By: NATTY Díaz Order Number: [id number] Reading MD: Rosalio Garcia Measurements Intervals [place] Rate: 80 P: CT: 0 QRS: -78 QRSD: 130 T: 39 QT: 401 QTc: 464 Interpretive Statements ATRIAL FIBRILLATION RIGHT BUNDLE BRANCH BLOCK LEFT ANTERIOR FASCICULAR BLOCK Probable right ventricle hypertrophy. Increased heart rate and frequent PVCs compared with 01/23/2013. Electronically Signed On 07-29-2016 17:12:13 EDT by Rosalio Garcia
== END ==
LOC: M EKG 13:00
PROVIDERS: ATTEND Urology
DX: C67.9 Malignant neoplasm of bladder, unspecified (principal); I48.91 Unspecified atrial fibrillation; I45.10 Unspecified right bundle-branch block; I44.4 Left anterior fascicular block

== ENCOUNTER → 2016-09-14 | Outpatient (CLI) | payer OTHER ==
[~2016-09-14] MED LIST changes: +ATOR40TA75 PO; +CIPR-249 PO; +CIPR250T3 PO; +CIPR500T3 PO; +FERR1TAB8 PO; -FERR325T PO; -FOLI1TAB2 PO; +FOLI1TAB4 PO; +HYDR-3911; +HYDR-3911 PO; -HYDR-4267; -HYDR-4267 PO; -METO50TA2; -METO50TA2 PO; +METO50TA7; +METO50TA7 PO; +TYLE650T35 PO
--- NOTE | 2016-09-14 11:40 | REP ---
Clinical: Pain. Technique: AP, lateral, bilateral oblique and sunrise views to the left knee. Findings: Moderate tricompartmental osteoarthritic degenerative changes include tibiofemoral and patellofemoral joint space narrowing, subchondral sclerosis, marginal spurring and small amount of chondrocalcinosis. No acute fracture dislocation. Vascular calcifications noted. Mild prepatellar soft tissue swelling. No effusion. Impression: Swelling. Moderate tricompartmental osteoarthritic degenerative changes. Signed by Jose Cruz Knutson MD 09/14/2016 11:32 A
== END ==
LOC: M WUC 10:30
PROVIDERS: ATTEND Physician Assistant
DX: M17.9 Osteoarthritis of knee, unspecified (principal)

== ENCOUNTER → 2016-09-21 | Day surgery (SDC) | payer OTHER ==
[~2016-09-21] VITALS: Ht 188 cm; Wt 103.4 kg
[~2016-09-21] MED LIST changes: +ACETAMINOPHEN 650MG ER TAB (TYLENOL ARTHRITIS) PO SCH; +CIPROFLOXACIN 250 MG TAB PO SCH; +CONRAY-60 60% 50ML VIAL (Q9961) As Ordered ONE; +HYDROmorphone HCL 1 MG/ML SYRINGE (J1170) IV PRN; +LIDOCAINE 2% INJ 100 MG/5 ML SDV (FOR ANES.) As Ordered ONE; +LR 1,000 ML IV SCH; +MIDAZOLAM INJ 2 MG/2 ML VIAL (J2250) As Ordered ONE; +ONDANSETRON 4MG/2ML VIAL (J2405) As Ordered ONE; +ONDANSETRON 4MG/2ML VIAL (J2405) IV PRN; +PERCOCET 5MG/325MG TAB PO PRN; +PROPOFOL 200 MG/20 ML VIAL As Ordered ONE; +ROCURONIUM BROMIDE 50 MG/5 ML VIAL/SYRINGE As Ordered ONE; +SUGAMMADEX SODIUM 500 MG/5 ML VIAL (BRIDION) As Ordered ONE; +ePHEDrine SULFATE 25 MG/5 ML(5MG/ML) SYRINGE As Ordered ONE; +fentaNYL 100 MCG/2 ML INJECTION (J3010) As Ordered ONE; +fentaNYL 100 MCG/2 ML INJECTION (J3010) IV PRN
--- NOTE | 2016-09-21 11:05 | REP ---
Retrograde pyelogram: Seven views. History: Pain. Findings: A sequence of seven fluoroscopically obtained last image hold procedural spot radiographs document bilateral ureteral cannulation and contrast injection and bilateral hydronephrosis. A pelvic kidney is noted on what appears to be left-sided although there are no laterality markers on the provided images. Fluoroscopy time is reported at 1 minute 54 seconds. Signed by Blas Simon MD 09/21/2016 05:14 P
[2016-09-21 14:15] VITALS: BP 147/93
--- NOTE | 2016-09-22 00:04 | RO ---
DATE OF PROCEDURE: 09/21/2016 PREOPERATIVE DIAGNOSIS: Bladder neoplasm. POSTOPERATIVE DIAGNOSES: Bladder neoplasm plus obstructed left ureter due to sessile bladder neoplasm in the trigone, in the posterior wall of the bladder. SURGERY PERFORMED: Cystoscopy, plus exam under anesthesia, plus right retrograde pyelogram, plus transurethral resection of bladder tumor (TURBT) of bladder tumor in the dome and also a bladder tumor in the posterior bladder wall, plus left retrograde pyelogram, plus left double J stent, plus transurethral resection of the prostate, bipolar transurethral resection of prostate (TURP), also. SURGEON: Chito Rueda MD FOUNTAIN CLERK: ANESTHESIA: FINDINGS: There is a sessile tumor in the posterior wall of the bladder involving the left trigone, which is actually blocking the left ureteral orifice. For this reason, he has a left hydronephrosis in the pelvic kidney. There is a papillary tumor in the dome of the bladder also, about 3 cm in diameter. HISTORY OF PRESENT ILLNESS: A 76-year-old male patient who has a history of having had a cystoscopy plus TURBT due to a papillary bladder tumor in the left lateral wall back in 2012. This showed superficial urothelial tract carcinoma, transitional cell carcinoma (TCC), high-grade, non-muscle invasive. For this reason, the patient actually was followed in the clinic. However, since 2012, he has been lost to followup. He has not come back. He appeared to the clinic now because of urinary retention, having failed voiding trial. We did a cystoscopy, which actually found a papillary tumor in the dome of the bladder. There was also a right ureteral orifice very well seen, but the left ureteral orifice could not be seen very well and there was a solid sessile mass at the level of the posterior wall of the bladder in the left trigone. At that moment in time, we also attempted to actually give him a voiding trial. The patient could not void. For this reason, we placed a Laurent catheter back. Of note, he has a CT scan that shows a left pelvic hydronephrotic kidney and also mild hydronephrosis of the right kidney. For this reason, he was consented for a cystoscopy, plus TURBT, plus bilateral retrograde pyelograms. PROCEDURE DESCRIPTION: In a patient in supine modified low lithotomy position under general anesthesia, we started by doing a cystoscopy with a #21-Stateless cystoscope with a 30-degree lens. The fossa navicularis, penile urethra, and bulbar urethra were totally normal. At the level of the bulbar urethra, there was a slight stricture, which was self-dilated with the cystoscopy passage. The membranous urethra was totally normal. The prostatic urethra showed lateral lobes touching and a high-riding bladder neck. We then entered the bladder. The bladder had multiple trabeculations. You could see very well the ureteral orifice on the right side. You could not see the ureteral orifice on the left side. There was a sessile mass on the left trigone, posterior wall of about 2-3 cm in diameter. You could also see a papillary tumor about 3 cm in diameter in the dome of the bladder. At that moment in time, we passed a Pollack catheter on the right side and we did a retrograde pyelogram. You could see mild hydronephrosis in the right kidney up to the distal ureter, but the ureter actually decompressed very well the contrast and was clearing urine very well. We could not find the left ureteral orifice after multiple attempts with the Pollack catheter and the guidewire. For this reason, we actually decided to do a resection of the papillary tumor in the dome of the bladder. After completing the resection and taking all the chips of bladder tumor out, classified as chips of bladder tumor of the dome, we decided to resect the sessile mass in the left trigone and also in the posterior wall. After resecting this, we could see a urothelial pinpoint hole at the level of the left trigone, what possibly could be the ureteral orifice. At that moment in time, with a curved guidewire, we passed into the ureteral orifice and then passed the Pollack and did a retrograde pyelogram. You could see severe hydroureteronephrosis of the left pelvic kidney. At that moment in time, we actually decided to actually leave a guidewire and then take the Pollack catheter out and leave a #6-Stateless [place] Cook stent on the left kidney. We then proceeded to actually visualize the bladder neck and the prostate gland. The prostate gland had enlargement of lateral lobes, completely obstructing the bladder neck as well as elevated bladder neck. For this reason, we actually decided to do a transurethral resection of the prostate, resecting the bladder neck and middle lobe as well as lateral lobes, and then controlled hemostasis. We the tissue resected on top of the ureteral orifice as bladder tumor resection of posterior bladder tumor, and then the chips of prostate of the TURP were sent in separate canister, also. Then, after fulgurating all the bleeding vessels, we actually took the cystoscope out and passed a #22-Stateless Laurent catheter, three-way, under normal saline irrigation to gravity. PLAN: If the patient's return is clear, we will stop the irrigation, put a plug in the three-way, and he will be discharged home. He will go home with ciprofloxacin, and he will go home with Tylenol Extended Release 650 mg every 8 hours as needed for pain. The patient tolerated well the procedure. We will discontinue the Laurent next Sunday at [facility] [place]. VELASQUEZ
== END | disposition home or self-care (01) ==
LOC: M SDC 07:22
PROVIDERS: ATTEND Urology
DX: C79.11 Secondary malignant neoplasm of bladder (principal); C61 Malignant neoplasm of prostate; I10 Essential (primary) hypertension; I25.10 Atherosclerotic heart disease of native coronary artery without angina pectoris; I25.2 Old myocardial infarction; E78.5 Hyperlipidemia, unspecified; M10.9 Gout, unspecified; K21.9 Gastro-esophageal reflux disease without esophagitis; D64.9 Anemia, unspecified; Z87.891 Personal history of nicotine dependence; J44.9 Chronic obstructive pulmonary disease, unspecified; Z79.899 Other long term (current) drug therapy; Z79.82 Long term (current) use of aspirin
CPT/HCPCS: 52240; 52332; 52601; 74420; 88307; 88341; 88344; C1726; C1769; C2617; J0690; J2250; J2405; J3010; Q9961

== ENCOUNTER → 2016-09-26 | Outpatient (CLI) | payer OTHER ==
[~2016-09-26] MED LIST changes: -ACETAMINOPHEN 650MG ER TAB (TYLENOL ARTHRITIS) PO SCH; -CIPROFLOXACIN 250 MG TAB PO SCH; -CONRAY-60 60% 50ML VIAL (Q9961) As Ordered ONE; -HYDROmorphone HCL 1 MG/ML SYRINGE (J1170) IV PRN; -LIDOCAINE 2% INJ 100 MG/5 ML SDV (FOR ANES.) As Ordered ONE; -LR 1,000 ML IV SCH; -MIDAZOLAM INJ 2 MG/2 ML VIAL (J2250) As Ordered ONE; -ONDANSETRON 4MG/2ML VIAL (J2405) As Ordered ONE; -ONDANSETRON 4MG/2ML VIAL (J2405) IV PRN; -PERCOCET 5MG/325MG TAB PO PRN; -PROPOFOL 200 MG/20 ML VIAL As Ordered ONE; -ROCURONIUM BROMIDE 50 MG/5 ML VIAL/SYRINGE As Ordered ONE; -SUGAMMADEX SODIUM 500 MG/5 ML VIAL (BRIDION) As Ordered ONE; -ePHEDrine SULFATE 25 MG/5 ML(5MG/ML) SYRINGE As Ordered ONE; -fentaNYL 100 MCG/2 ML INJECTION (J3010) As Ordered ONE; -fentaNYL 100 MCG/2 ML INJECTION (J3010) IV PRN
[2016-09-26 14:30] LABS: CALCIUM LEVEL 8.2 MG/DL (8.8-10.2); CREATININE FOR GFR 2.76 MG/DL (0.70-1.30); GLOMERULAR FILTRATION RATE 23.9 (>42); POTASSIUM SERUM 4.7 MEQ/L (3.5-5.1)
== END ==
LOC: M SMT 09:41
PROVIDERS: ATTEND Nurse Practitioner Women's Health
DX: C61 Malignant neoplasm of prostate (principal)

== ENCOUNTER → 2016-11-02 | Outpatient (CLI) | payer OTHER ==
--- NOTE | 2016-11-02 13:29 | REP ---
Whole body radionuclide bone scan: History: Prostate carcinoma. No comparison bone scan. Technique: 22.0 mCi technetium 99m MDP is injected and standard whole body bone scan imaging is acquired. Scintigraphic findings: There is an osteoarthritic pattern of increased uptake involving both knees, the left wrist, both acromioclavicular joints, and degenerative pattern in the thoracolumbar spine and cervical spine. There is no evidence to suggest skeletal metastatic disease. There is uptake in the kidneys bilaterally. The left kidney is noted just above the bladder in the left lower abdomen. Impression: Pelvic kidney on the left. Degenerative disc and osteoarthritic pattern. No evidence to suggest skeletal metastatic disease. Signed by Blas Simon MD 11/02/2016 01:41 P
== END ==
LOC: M RAD 14:32
PROVIDERS: ATTEND Nurse Practitioner Women's Health
DX: C61 Malignant neoplasm of prostate (principal); Z85.51 Personal history of malignant neoplasm of bladder; M16.11 Unilateral primary osteoarthritis, right hip; M16.12 Unilateral primary osteoarthritis, left hip; M51.35 Other intervertebral disc degeneration, thoracolumbar region; M50.93 Cervical disc disorder, unspecified, cervicothoracic region
CPT/HCPCS: 78306; A9503

== ENCOUNTER 2016-11-08 14:36 | Emergency (ER) | payer OTHER ==
[~2016-11-08] VITALS: Ht 188 cm; Wt 103.1 kg
[~2016-11-08 14:36] MED LIST changes: -CIPR-249 PO
[2016-11-08] MEDS ORDERED: LIDOCAINE 2% JELLY 30 ML As Ordered ONE (15:24)
[2016-11-08] MEDS ORDERED: LIDOCAINE 2% JELLY 30 ML TOP ONE (15:30)
[2016-11-08] MEDS ORDERED: CIPR-249 PO (18:10)
[2016-11-08] MEDS ORDERED: CIPROFLOXACIN 500 MG TAB PO ONE (18:15)
[2016-11-08 18:24] VITALS: BP 150/94
--- NOTE | 2016-11-09 17:24 | CR ---
DATE OF CONSULTATION: 11/08/2016 CHIEF COMPLAINT: Urinary retention. HISTORY OF PRESENT ILLNESS: 76-year-old male patient with adenocarcinoma of the prostate [place] 9. The patient actually went into urinary retention. For this reason, he went to the office at [facility] [place]. They could not actually passed a 16 Haitian catheter or 18 Haitian catheter. His PVR measured by bladder scan was 900 mL. For this reason, the patient came to the emergency department sent by our nurse practitioner, Damaris Piper, to the emergency department. The patient has peed multiple times about 200 to 300 mL. However, his PVR is 800 mL still. For this reason, we actively prepped and draped the area of concern which included the genitalia and introduced a 14 Haitian Laurent catheter, which actually went very easily into the bladder and inflated the balloon to 10 mL and placed it to gravity. PLAN: The patient will be discharged home today with antibiotics. Ciprofloxacin 500 mg one tablet by mouth twice a day for 7 days, Tylenol 650 mg extended release one tablet by mouth every 8 hours as needed for pain. He will followup at [facility] either with me or Damaris Piper as soon as possible. Thank you very much. There were no complications during catheter placement.
== END 2016-11-08 18:25 | disposition home or self-care (01) ==
LOC: M ED 14:36
DX: R33.9 Retention of urine, unspecified (principal); C61 Malignant neoplasm of prostate; I51.9 Heart disease, unspecified; I10 Essential (primary) hypertension; Z79.899 Other long term (current) drug therapy

== ENCOUNTER → 2016-12-14 | Outpatient (CLI) | payer OTHER ==
[~2016-12-14] MED LIST changes: +CIPR-249 PO
--- NOTE | 2016-12-16 10:31 | RADONC ---
RADIATION ONCOLOGY CONSULTATION NOTE DATE: 12/14/2016 CHART NUMBER: [id number] DIAGNOSIS: Prostate cancer. STAGE: IV, T4N0M0. ECOG PERFORMANCE STATUS: 0 CONSULTATION NOTE: Mr. 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 HISTORY OF PRESENT ILLNESS: The patient was in his usual state of health and actually was diagnosed in 2012 with bladder cancer. 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 There was no evidence of invasion. He did not receive any postoperative radiation therapy. The patient was recently found to have lesions in the dome of his bladder as well as the base of the bladder. On 09/21/2016 he underwent TURBT as well as biopsies of the base and a prostatic tissue transurethral resection. Pathology of the dome of the bladder showed moderate to poorly differentiated adenocarcinoma consistent with a prostate primary. Biopsies of the base of the bladder showed once again, poorly to moderately differentiated adenocarcinoma consistent with a prostate primary. The TUR of the prostate showed numerous fragments of poorly differentiated adenocarcinoma, [place] score 9 (4-5). A PSA was done on 09/26/2016, which was found to be 6.69. The patient has initiated hormonal therapy and has had a Lupron injection. He is now presenting for consideration of definitive external beam radiation therapy to his primary site. PAST MEDICAL HISTORY: The patient's past medical history is positive as noted above for his previous bladder cancer. He has a history of hypertension as well as arthritis. He had a rotator cuff surgery of the left shoulder. ALLERGIES: The patient has NO KNOWN DRUG ALLERGIES. SOCIAL HISTORY: The patient quit smoking 30 years ago. He had smoked one pack of cigarettes per day for about 15-20 years. He does not abuse alcohol. FAMILY HISTORY: The patient's family history is positive for a sister with leukemia and a brother with rectal cancer. He also has a brother with kidney cancer. REVIEW OF SYSTEMS: The patient's review of systems is positive for hearing loss but is otherwise noncontributory. He denies nausea, vomiting, fevers, chills, night sweats, diplopia, headaches, anxiety or depression, anorexia, weight loss, visual disturbances, chest pain, urinary or bowel difficulties, bone pain or neurological problems. PHYSICAL EXAMINATION: The patient is a well-developed, well-nourished male in no acute distress. HEENT exam is normocephalic, atraumatic. Extraocular movements are intact. There is no palpable cervical, supraclavicular, infraclavicular, axillary, or inguinal lymphadenopathy present. Lungs are clear to auscultation and percussion. Heart has a regular rate and rhythm. Abdomen is benign with no hepatosplenomegaly, masses, or tenderness. Rectal examination reveals a normal anal sphincter tone. His prostate is smooth with no evidence of nodularity. Skeletal examination reveals no tenderness to pressure or percussion of the bony skeleton. Extremities reveal no clubbing, cyanosis, or edema. Neurologic exam is grossly intact as is the remainder of the physical examination. MEDICAL NECESSITY: IMRT/IGRT is clinically indicated for the highly conformal dose planning required. The target volume is in close proximity to critical structures, such as the rectum, bladder, small bowel, and femoral heads. The volume of interest must be covered with narrow margins to adequately protect immediately adjacent structures. The plan requires interpretation of complex testing such as CT localization. As noted above, special planning (IMRT) and localizing (IGRT) is required and essential to maximally protect sensitive normal tissue structures which cannot be accomplished using conventional 3-dimensional planning. ASSESSMENT: Clearly, the patient is a candidate for external beam radiation therapy and I have so informed him. I have discussed with the patient in detail the potential benefits as well as possible acute and chronic sequelae of external beam radiation therapy. We have discussed the logistics of treatment planning, simulation and subsequent fractionated daily radiation treatments. I am referring the patient back to Dr. Lopez for placement of fiducial markers. Once fiducial markers are placed we can initiate treatment planning. Thank you once again for allowing us to participate the care of this very pleasant gentleman. If I could be of any further assistance, or provide you with any information, please free to contact me at anytime. cc: MD Mckenzie Still, ANP-BC
== END ==
LOC: M ONCR 14:00
PROVIDERS: ATTEND Radiology Radiation Oncology
DX: C61 Malignant neoplasm of prostate (principal)

== ENCOUNTER → 2016-12-25 | Outpatient (CLI) | payer OTHER ==
--- NOTE | 2016-12-26 04:02 | REP ---
Clinical: History of prostate cancer. Comparison: 07/04/2016. Findings: Lung bases demonstrate mild chronic changes and otherwise limited due to respiratory motion artifact. Liver, spleen, pancreas, gallbladder, bilateral adrenal glands are normal. Right kidney is identified in normal position within the renal fossa without hydronephrosis and includes multiple hypodensities measuring up to approximately 2.5 cm diameter suggesting cysts and stable compared to prior examination. Left kidney is identified within the pelvis and includes innumerable hypodensities consistent with cysts measuring up to 3 cm diameter and includes a ureteral stent extending into the bladder without evidence for hydronephrosis. The enteric system is without obstruction or acute inflammatory process. Colonic diverticulosis noted without acute diverticulitis. Pelvis demonstrates left pelvic cystic kidney with ureteral stent and no evidence for hydronephrosis along with a Laurent catheter in bladder which demonstrates irregular wall thickening. Prostate gland is mildly enlarged and stable. No pelvic fluid or ascites. No significant adenopathy or obvious mass lesion appreciated. Atherosclerotic changes of the aorta and vasculature noted without aneurysm. Musculoskeletal structures demonstrate degenerative changes without focal osseous abnormality. Impression: 1. Cystic changes to the bilateral kidneys with the left kidney identified in the pelvis and left ureteral stent extending to the bladder. 2. Bladder demonstrates irregular wall thickening and Luarent catheter in satisfactory position. Prostate gland is actively stable. 3. Colonic diverticulosis. 4. Skeletal structures demonstrate age-related degenerative changes without focal osseous abnormality. Signed by Jose Cruz Knutson MD 12/26/2016 03:53 A
== END ==
LOC: M RAD 14:29
PROVIDERS: ATTEND Urology
DX: C61 Malignant neoplasm of prostate (principal)

== ENCOUNTER 2017-01-17 14:27 | Outpatient (RCR) | payer OTHER ==
--- NOTE | 2017-01-30 08:59 | RADONC ---
RADIATION ONCOLOGY FOLLOWUP DATE: 01/29/2017 CHART NUMBER: [id number] Mr. Ponce is presently on a dose of 720 cGy to his bladder and prostate and is tolerating treatments quite well at this point with no complaints related to his radiation therapy. He is having no urinary or bowel difficulties and no bone pain. REVIEW OF SYSTEMS: The patient's review of systems is noncontributory. Denies nausea, vomiting, fevers, chills, night sweats, diplopia, headaches, anxiety or depression, anorexia, weight loss, visual disturbances, chest pain, urinary or bowel difficulties, bone pain, or neurological problems. PHYSICAL EXAMINATION The patient's skin is in good condition with no evidence of radiation change present. There is no moist or dry desquamation. The remainder of his physical exam remains unchanged. Mr. Ponce is tolerating treatments quite well, and radiation will continue as scheduled.
--- NOTE | 2017-02-07 10:40 | RADONC ---
RADIATION ONCOLOGY DATE: 02/05/2017 CHART NUMBER: [id number] Mr. Ponce is presently at a dose of 1440 cGy to his bladder and prostate and is tolerating treatments quite well at this point with no complaints related to his radiation therapy. He has no significant new urinary or bowel difficulties or bone pain. REVIEW OF SYSTEMS: The patient's review of systems is noncontributory. Denies nausea, vomiting, fevers, chills, night sweats, diplopia, headaches, anxiety or depression, anorexia, weight loss, visual disturbances, chest pain, urinary or bowel difficulties, bone pain, or neurological problems. PHYSICAL EXAMINATION The patient's skin is in good condition with no evidence of moist or dry desquamation. The remainder of his physical exam remains unchanged. Mr. Ponce is tolerating treatments quite well, and radiation will continue as scheduled.
--- NOTE | 2017-02-13 07:07 | RADONC ---
RADIATION ONCOLOGY PROGRESS NOTE DATE: 02/12/2017 CHART NUMBER: [id number] Mr. Ponce is presently at a dose of 2160 cGy to his prostate/bladder and is tolerating treatments quite well at this point with no complaints related to his radiation therapy. He is having no urinary or bowel difficulties and no bone pain. The patient's review of systems is noncontributory. He denies nausea, vomiting, fevers, chills, night sweats, diplopia, headaches, anxiety or depression, anorexia, weight loss, visual disturbances, chest pain, urinary or bowel difficulties, bone pain, or neurological problems. PHYSICAL EXAMINATION: The patient's skin is in good condition with no evidence of moist or dry desquamation. The remainder of his physical exam remains unchanged. Mr. Ponce is tolerating treatments quite well and radiation will continue as scheduled.
== END 2017-02-15 ==
LOC: M ONCR 14:27
PROVIDERS: ATTEND Radiology Radiation Oncology
DX: C61 Malignant neoplasm of prostate (principal); Z85.51 Personal history of malignant neoplasm of bladder

== ENCOUNTER → 2017-02-01 | Outpatient (CLI) | payer OTHER ==
[2017-02-01 18:59] LABS: MEAN CORPUSCULAR HEMOGLOBIN 31.9 pg (27.0-33.0); MEAN CORPUSCULAR HGB CONC 31.7 g/dl (32.0-36.5); MEAN CORPUSCULAR VOLUME 100.6 fl (80.0-96.0); PLATELET COUNT, AUTOMATED 204 10^3/uL (150-450); RED CELL DISTRIBUTION WIDTH 15.7 % (11.5-14.5); WHITE BLOOD COUNT 4.9 10^3/uL (4.0-10.0)
[2017-02-01 19:18] LABS: CALCIUM LEVEL 8.6 MG/DL (8.8-10.2); CREATININE FOR GFR 2.94 MG/DL (0.70-1.30); GLOMERULAR FILTRATION RATE 22.2 (>42); POTASSIUM SERUM 4.8 MEQ/L (3.5-5.1)
== END ==
LOC: M SMT 15:40
PROVIDERS: ATTEND Urology
DX: C61 Malignant neoplasm of prostate (principal)
CPT/HCPCS: 36415; 51701; 80048; 84153; 84402; 84403; 85027; 96402; G0463; J9155

== ENCOUNTER 2017-02-16 14:45 | Outpatient (RCR) | payer OTHER | END 2017-03-18 | LOC: M ONCR 14:45 | DX: C61 Malignant neoplasm of prostate (principal); Z85.51 Personal history of malignant neoplasm of bladder | CPT/HCPCS: 77300 ==

== ENCOUNTER → 2017-03-02 | Outpatient (REF) | payer OTHER | LOC: M SMT 17:00 | PROVIDERS: ATTEND Urology | DX: R33.9 Retention of urine, unspecified (principal) ==

== ENCOUNTER 2017-03-20 11:25 | Outpatient (RCR) | payer OTHER | END 2017-04-18 | LOC: M ONCR 11:25 | DX: C61 Malignant neoplasm of prostate (principal); Z85.51 Personal history of malignant neoplasm of bladder | CPT/HCPCS: 77336 ==

== ENCOUNTER → 2017-04-25 | Outpatient (CLI) | payer OTHER | LOC: M ONCR 14:29 | DX: Z08 Encounter for follow-up examination after completed treatment for malignant neoplasm (principal); Z85.46 Personal history of malignant neoplasm of prostate | CPT/HCPCS: 84153 ==

== ENCOUNTER → 2017-05-25 | Outpatient (REF) | payer OTHER | LOC: M LAB REF 13:04 | DX: N39.0 Urinary tract infection, site not specified (principal) | CPT/HCPCS: 87186 ==

== ENCOUNTER 2017-05-31 08:38 | Inpatient (IN) | payer OTHER ==
[2017-05-31 10:26] LABS: BASO % 0.6 % (0.0-1.0); EOS # 0.1 10^3/uL (0.0-0.50); EOS % 0.9 % (0.0-3.0); HEMATOCRIT 32.1 % (42.0-52.0); HEMOGLOBIN 10.5 g/dl (14.0-18.0); IMMATURE GRANULOCYTE % 0.6 % (0-3.0); LYMPH # 0.9 10^3/uL (1.5-4.5); LYMPH % 13.2 % (24.0-44.0); MEAN CORPUSCULAR HEMOGLOBIN 33.7 pg (27.0-33.0); MEAN CORPUSCULAR HGB CONC 32.7 g/dl (32.0-36.5); MEAN CORPUSCULAR VOLUME 102.9 fl (80.0-96.0); MONO # 0.6 10^3/uL (0.0-0.8); MONO % 7.8 % (0.0-5.0); NEUTROPHILS # 5.4 10^3/uL (1.8-7.7); NEUTROPHILS % 76.9 % (36.0-66.0); PLATELET COUNT, AUTOMATED 282 10^3/uL (150-450); RED BLOOD COUNT 3.12 10^6/uL (4.30-6.10); RED CELL DISTRIBUTION WIDTH 13.5 % (11.5-14.5)
[2017-05-31 10:46] LABS: ANION GAP 9 MEQ/L (8-16); BLOOD UREA NITROGEN 44 MG/DL (7-18); CALCIUM LEVEL 8.5 MG/DL (8.8-10.2); CARBON DIOXIDE LEVEL 25 MEQ/L (21-32); CHLORIDE LEVEL 103 MEQ/L (98-107); CREATININE FOR GFR 3.54 MG/DL (0.70-1.30); GLOMERULAR FILTRATION RATE 17.9 (>42); GLUCOSE, FASTING 102 MG/DL (70-100); POTASSIUM SERUM 4.3 MEQ/L (3.5-5.1); SODIUM LEVEL 137 MEQ/L (136-145)
[2017-05-31] MEDS: MORPHINE 2 MG/ML 1ML SYRINGE (J2270) IV ×2 (11:29→13:28)
[2017-05-31 12:00] LABS: APPEARANCE, URINE MANUAL TURBID (CLEAR); COLOR, URINE MANUAL RED (YELLOW); GLUCOSE, URINE (UA) MANUAL NEGATIVE (NEGATIVE); KETONE, URINE MANUAL 3+ mg/dL (NEGATIVE); PROTEIN, URINE MANUAL OBSCURED mg/dL (NEGATIVE); SPECIFIC GRAVITY,URINE MANUAL 1.005 (1.002-1.035); UROBILINOGEN, URINE MANUAL OBSCURED mg/dl (NORMAL)
[2017-05-31 12:01] LABS: BILIRUBIN, URINE MANUAL OBSCURED (NEGATIVE); BLOOD URINE MANUAL POSITIVE (NEGATIVE); LEUKOCYTE ESTERASE, URINE MAN POSITIVE (NEGATIVE); MICROSCOPIC INDICATED? MAN YES (NO); NITRITE, URINE MANUAL POSITIVE (NEGATIVE)
[2017-05-31 12:04] LABS: BACTERIA, URINE LARGE AMOUNT; MICROSCOPIC EXAM PERFORMED; RBC, URINE TNTC /hpf (0-3); WBC, URINE TNTC /hpf (0-3)
[2017-05-31] MEDS ORDERED: LIDOCAINE 2% JELLY 30 ML As Ordered (13:49)
[2017-05-31] MEDS: LIDOCAINE 2% JELLY 30 ML TOP (15:00)
[2017-05-31] MEDS: LevoFLOXacin IV 500 MG in APPROPRIATE DILUENT 1 EA IV (17:29)
[2017-05-31] MEDS ORDERED: ALBUTEROL 90 MCG/ACT 8GM HFA INHALER INH (18:00)
[2017-05-31] MEDS: METOPROLOL TART 50 MG TAB PO (20:46)
[2017-05-31] MEDS: TAMSULOSIN 0.4 MG CAP PO (20:46)
[2017-05-31] MEDS: OMEPRAZOLE 20 MG CAP PO (20:46)
[2017-05-31] MEDS: ATORVASTATIN 20 MG TAB PO (20:46)
[2017-05-31] MEDS: SYMBICORT 160/4.5MCG INHALER 6GM INH (21:00)
[2017-05-31 21:43] LABS: BASO % 0.6 % (0.0-1.0); EOS # 0.1 10^3/uL (0.0-0.50); EOS % 1.1 % (0.0-3.0); HEMATOCRIT 30.8 % (42.0-52.0); HEMOGLOBIN 10.2 g/dl (14.0-18.0); IMMATURE GRANULOCYTE % 0.6 % (0-3.0); LYMPH # 1.3 10^3/uL (1.5-4.5); LYMPH % 18.6 % (24.0-44.0); MEAN CORPUSCULAR HEMOGLOBIN 34.1 pg (27.0-33.0); MEAN CORPUSCULAR HGB CONC 33.1 g/dl (32.0-36.5); MONO # 0.9 10^3/uL (0.0-0.8); MONO % 11.8 % (0.0-5.0); NEUTROPHILS # 4.9 10^3/uL (1.8-7.7); NEUTROPHILS % 67.3 % (36.0-66.0); PLATELET COUNT, AUTOMATED 261 10^3/uL (150-450); RED BLOOD COUNT 2.99 10^6/uL (4.30-6.10); RED CELL DISTRIBUTION WIDTH 13.5 % (11.5-14.5); WHITE BLOOD COUNT 7.2 10^3/uL (4.0-10.0)
[2017-05-31 21:55] LABS: ANION GAP 12 MEQ/L (8-16); BLOOD UREA NITROGEN 49 MG/DL (7-18); CALCIUM LEVEL 8.3 MG/DL (8.8-10.2); CARBON DIOXIDE LEVEL 23 MEQ/L (21-32); CHLORIDE LEVEL 102 MEQ/L (98-107); CREATININE FOR GFR 3.77 MG/DL (0.70-1.30); GLOMERULAR FILTRATION RATE 16.7 (>42); GLUCOSE, FASTING 106 MG/DL (70-100); SODIUM LEVEL 137 MEQ/L (136-145)
[2017-06-01 05:52] LABS: BASO % 0.4 % (0.0-1.0); EOS # 0.2 10^3/uL (0.0-0.50); EOS % 3.3 % (0.0-3.0); HEMATOCRIT 29.1 % (42.0-52.0); HEMOGLOBIN 9.4 g/dl (14.0-18.0); IMMATURE GRANULOCYTE % 0.6 % (0-3.0); LYMPH # 1.4 10^3/uL (1.5-4.5); LYMPH % 20.7 % (24.0-44.0); MEAN CORPUSCULAR HEMOGLOBIN 33.2 pg (27.0-33.0); MEAN CORPUSCULAR HGB CONC 32.3 g/dl (32.0-36.5); MEAN CORPUSCULAR VOLUME 102.8 fl (80.0-96.0); MONO # 0.8 10^3/uL (0.0-0.8); MONO % 11.8 % (0.0-5.0); NEUTROPHILS # 4.2 10^3/uL (1.8-7.7); NEUTROPHILS % 63.2 % (36.0-66.0); PLATELET COUNT, AUTOMATED 283 10^3/uL (150-450); RED BLOOD COUNT 2.83 10^6/uL (4.30-6.10); RED CELL DISTRIBUTION WIDTH 13.6 % (11.5-14.5); WHITE BLOOD COUNT 6.7 10^3/uL (4.0-10.0)
[2017-06-01 06:15] LABS: ANION GAP 11 MEQ/L (8-16); BLOOD UREA NITROGEN 51 MG/DL (7-18); CARBON DIOXIDE LEVEL 24 MEQ/L (21-32); CHLORIDE LEVEL 101 MEQ/L (98-107); CREATININE FOR GFR 4.16 MG/DL (0.70-1.30); GLOMERULAR FILTRATION RATE 14.9 (>42); GLUCOSE, FASTING 105 MG/DL (70-100); POTASSIUM SERUM 4.3 MEQ/L (3.5-5.1); SODIUM LEVEL 136 MEQ/L (136-145)
[2017-06-01] MEDS: SYMBICORT 160/4.5MCG INHALER 6GM INH ×2 (08:44→21:13)
[2017-06-01] MEDS: THIAMINE 100 MG TAB PO (09:46)
[2017-06-01] MEDS: NS 1,000 ML IV ×2 (09:46→20:30)
[2017-06-01] MEDS: ALLOPURINOL 300 MG TAB PO (09:46)
[2017-06-01] MEDS: FERROUS SULFATE 325MG TAB PO (09:46)
[2017-06-01] MEDS ORDERED: LevoFLOXacin IV 750 MG in APPROPRIATE DILUENT 1 EA IV (18:00)
[2017-06-01] MEDS: LevoFLOXacin IV 500 MG in APPROPRIATE DILUENT 1 EA IV (18:13)
[2017-06-01] MEDS: OMEPRAZOLE 20 MG CAP PO (21:13)
[2017-06-01] MEDS: ATORVASTATIN 20 MG TAB PO (21:13)
[2017-06-01] MEDS: TAMSULOSIN 0.4 MG CAP PO (21:13)
[2017-06-01] MEDS: METOPROLOL TART 50 MG TAB PO (21:14)
[2017-06-02 04:13] LABS: BASO % 0.5 % (0.0-1.0); EOS # 0.2 10^3/uL (0.0-0.50); EOS % 4.3 % (0.0-3.0); HEMATOCRIT 26.6 % (42.0-52.0); HEMOGLOBIN 8.7 g/dl (14.0-18.0); IMMATURE GRANULOCYTE % 0.7 % (0-3.0); LYMPH # 1.1 10^3/uL (1.5-4.5); LYMPH % 20.3 % (24.0-44.0); MEAN CORPUSCULAR HEMOGLOBIN 33.3 pg (27.0-33.0); MEAN CORPUSCULAR HGB CONC 32.7 g/dl (32.0-36.5); MEAN CORPUSCULAR VOLUME 101.9 fl (80.0-96.0); MONO # 0.6 10^3/uL (0.0-0.8); MONO % 11.2 % (0.0-5.0); NEUTROPHILS # 3.5 10^3/uL (1.8-7.7); PLATELET COUNT, AUTOMATED 252 10^3/uL (150-450); RED BLOOD COUNT 2.61 10^6/uL (4.30-6.10); RED CELL DISTRIBUTION WIDTH 13.6 % (11.5-14.5); WHITE BLOOD COUNT 5.5 10^3/uL (4.0-10.0)
[2017-06-02 04:29] LABS: ANION GAP 9 MEQ/L (8-16); BLOOD UREA NITROGEN 54 MG/DL (7-18); CARBON DIOXIDE LEVEL 24 MEQ/L (21-32); CHLORIDE LEVEL 104 MEQ/L (98-107); CREATININE FOR GFR 3.76 MG/DL (0.70-1.30); GLOMERULAR FILTRATION RATE 16.7 (>42); GLUCOSE, FASTING 114 MG/DL (70-100); POTASSIUM SERUM 3.9 MEQ/L (3.5-5.1); SODIUM LEVEL 137 MEQ/L (136-145)
[2017-06-02 04:49] LABS: HIVSOURCE0 NEGATIVE (NEGATIVE)
[2017-06-02 04:51] LABS: HIV SOURCE PT 1 NEGATIVE (NEGATIVE)
[2017-06-02 04:52] LABS: CONTROL LINE INT CTR LINE PRESENT
[2017-06-02] MEDS: THIAMINE 100 MG TAB PO (08:42)
[2017-06-02] MEDS: FERROUS SULFATE 325MG TAB PO (08:43)
[2017-06-02] MEDS: ALLOPURINOL 300 MG TAB PO (08:43)
[2017-06-02] MEDS: SYMBICORT 160/4.5MCG INHALER 6GM INH ×2 (09:29→21:00)
[2017-06-02] MEDS: NS 1,000 ML IV ×2 (11:00→21:13)
[2017-06-02 16:08] LABS: HEMATOCRIT 25.7 % (42.0-52.0); HEMOGLOBIN 8.4 g/dl (14.0-18.0)
[2017-06-02] MEDS: METOPROLOL TART 50 MG TAB PO (21:12)
[2017-06-02] MEDS: TAMSULOSIN 0.4 MG CAP PO (21:12)
[2017-06-02] MEDS: OMEPRAZOLE 20 MG CAP PO (21:12)
[2017-06-02] MEDS: ATORVASTATIN 20 MG TAB PO (21:21)
[2017-06-03 00:26] LABS: HEMATOCRIT 25.4 % (42.0-52.0); HEMOGLOBIN 8.2 g/dl (14.0-18.0)
[2017-06-03 05:38] LABS: BASO % 0.4 % (0.0-1.0); EOS # 0.3 10^3/uL (0.0-0.50); EOS % 5.2 % (0.0-3.0); HEMATOCRIT 24.7 % (42.0-52.0); IMMATURE GRANULOCYTE % 0.4 % (0-3.0); LYMPH % 18.6 % (24.0-44.0); MEAN CORPUSCULAR HEMOGLOBIN 33.2 pg (27.0-33.0); MEAN CORPUSCULAR HGB CONC 32.4 g/dl (32.0-36.5); MEAN CORPUSCULAR VOLUME 102.5 fl (80.0-96.0); MONO # 0.6 10^3/uL (0.0-0.8); MONO % 11.5 % (0.0-5.0); NEUTROPHILS # 3.4 10^3/uL (1.8-7.7); NEUTROPHILS % 63.9 % (36.0-66.0); PLATELET COUNT, AUTOMATED 236 10^3/uL (150-450); RED BLOOD COUNT 2.41 10^6/uL (4.30-6.10); RED CELL DISTRIBUTION WIDTH 13.4 % (11.5-14.5); WHITE BLOOD COUNT 5.4 10^3/uL (4.0-10.0)
[2017-06-03 06:01] LABS: ANION GAP 11 MEQ/L (8-16); BLOOD UREA NITROGEN 44 MG/DL (7-18); CARBON DIOXIDE LEVEL 20 MEQ/L (21-32); CHLORIDE LEVEL 109 MEQ/L (98-107); GLOMERULAR FILTRATION RATE 21.7 (>42); GLUCOSE, FASTING 108 MG/DL (70-100); POTASSIUM SERUM 4.1 MEQ/L (3.5-5.1); SODIUM LEVEL 140 MEQ/L (136-145)
[2017-06-03] MEDS: ALLOPURINOL 300 MG TAB PO (08:47)
[2017-06-03] MEDS: THIAMINE 100 MG TAB PO (08:47)
[2017-06-03] MEDS: FERROUS SULFATE 325MG TAB PO (08:47)
[2017-06-03 14:39] LABS: IMMEDIATE SPIN CROSSMATCH 1 2
[2017-06-03] MEDS: LevoFLOXacin IV 500 MG in APPROPRIATE DILUENT 1 EA IV (17:43)
[2017-06-03] MEDS: amLODIPine 5 MG TAB PO (17:56)
[2017-06-03] MEDS: SYMBICORT 160/4.5MCG INHALER 6GM INH (19:29)
[2017-06-03 19:42] LABS: HEMATOCRIT 30.6 % (42.0-52.0); HEMOGLOBIN 9.9 g/dl (14.0-18.0); MEAN CORPUSCULAR HGB CONC 32.4 g/dl (32.0-36.5); PLATELET COUNT, AUTOMATED 234 10^3/uL (150-450); RED CELL DISTRIBUTION WIDTH 15.6 % (11.5-14.5); WHITE BLOOD COUNT 7.6 10^3/uL (4.0-10.0)
[2017-06-03] MEDS: METOPROLOL TART 50 MG TAB PO (20:31)
[2017-06-03] MEDS: ATORVASTATIN 20 MG TAB PO (20:31)
[2017-06-03] MEDS: OMEPRAZOLE 20 MG CAP PO (20:31)
[2017-06-03] MEDS: TAMSULOSIN 0.4 MG CAP PO (20:31)
[2017-06-04 06:04] LABS: BASO % 0.5 % (0.0-1.0); EOS # 0.3 10^3/uL (0.0-0.50); EOS % 5.2 % (0.0-3.0); HEMATOCRIT 28.5 % (42.0-52.0); HEMOGLOBIN 9.4 g/dl (14.0-18.0); LYMPH # 1.2 10^3/uL (1.5-4.5); LYMPH % 19.5 % (24.0-44.0); MEAN CORPUSCULAR HEMOGLOBIN 33.2 pg (27.0-33.0); MEAN CORPUSCULAR VOLUME 100.7 fl (80.0-96.0); MONO # 0.7 10^3/uL (0.0-0.8); MONO % 11.6 % (0.0-5.0); NEUTROPHILS # 3.9 10^3/uL (1.8-7.7); NEUTROPHILS % 62.2 % (36.0-66.0); PLATELET COUNT, AUTOMATED 233 10^3/uL (150-450); RED BLOOD COUNT 2.83 10^6/uL (4.30-6.10); RED CELL DISTRIBUTION WIDTH 15.4 % (11.5-14.5); WHITE BLOOD COUNT 6.2 10^3/uL (4.0-10.0)
[2017-06-04 06:24] LABS: ANION GAP 9 MEQ/L (8-16); BLOOD UREA NITROGEN 36 MG/DL (7-18); CALCIUM LEVEL 8.1 MG/DL (8.8-10.2); CARBON DIOXIDE LEVEL 23 MEQ/L (21-32); CHLORIDE LEVEL 108 MEQ/L (98-107); CREATININE FOR GFR 2.63 MG/DL (0.70-1.30); FERRITIN 148 NG/ML (26-388); GLOMERULAR FILTRATION RATE 25.3 (>42); GLUCOSE, FASTING 95 MG/DL (70-100); IRON (FE) 31 UG/DL (65-175); PERCENT SATURATION 14.7 % (19.7-50.0); POTASSIUM SERUM 4.6 MEQ/L (3.5-5.1); SODIUM LEVEL 140 MEQ/L (136-145); TOTAL IRON BINDING CAPACITY 211 UG/DL (250-450)
[2017-06-04] MEDS: SYMBICORT 160/4.5MCG INHALER 6GM INH ×2 (07:47→19:37)
[2017-06-04] MEDS: FERROUS SULFATE 325MG TAB PO (09:09)
[2017-06-04] MEDS: THIAMINE 100 MG TAB PO (09:09)
[2017-06-04] MEDS: ALLOPURINOL 300 MG TAB PO (09:10)
[2017-06-04] MEDS: amLODIPine 5 MG TAB PO (09:11)
[2017-06-04 10:26] LABS: HEPATITIS B SURFACE ANTIGEN NEGATIVE (NEGATIVE)
[2017-06-04 13:50] LABS: MAGNESIUM LEVEL 2.3 MG/DL (1.8-2.4)
[2017-06-04 18:25] LABS: HEMATOCRIT 29.2 % (42.0-52.0); HEMOGLOBIN 9.6 g/dl (14.0-18.0)
[2017-06-04] MEDS: ATORVASTATIN 20 MG TAB PO (20:22)
[2017-06-04] MEDS: TAMSULOSIN 0.4 MG CAP PO (20:23)
[2017-06-04] MEDS: METOPROLOL TART 50 MG TAB PO (20:23)
[2017-06-04] MEDS: OMEPRAZOLE 20 MG CAP PO (20:23)
[2017-06-05 01:40] LABS: HEMATOCRIT 29.9 % (42.0-52.0); HEMOGLOBIN 9.8 g/dl (14.0-18.0); MEAN CORPUSCULAR HEMOGLOBIN 33.4 pg (27.0-33.0); MEAN CORPUSCULAR HGB CONC 32.8 g/dl (32.0-36.5); PLATELET COUNT, AUTOMATED 229 10^3/uL (150-450); RED BLOOD COUNT 2.93 10^6/uL (4.30-6.10); RED CELL DISTRIBUTION WIDTH 15.2 % (11.5-14.5); WHITE BLOOD COUNT 6.7 10^3/uL (4.0-10.0)
[2017-06-05 06:05] LABS: BASO % 0.5 % (0.0-1.0); EOS # 0.4 10^3/uL (0.0-0.50); EOS % 5.9 % (0.0-3.0); HEMATOCRIT 28.3 % (42.0-52.0); HEMOGLOBIN 9.2 g/dl (14.0-18.0); IMMATURE GRANULOCYTE % 1.1 % (0-3.0); LYMPH # 1.1 10^3/uL (1.5-4.5); LYMPH % 15.9 % (24.0-44.0); MEAN CORPUSCULAR HEMOGLOBIN 32.6 pg (27.0-33.0); MEAN CORPUSCULAR HGB CONC 32.5 g/dl (32.0-36.5); MEAN CORPUSCULAR VOLUME 100.4 fl (80.0-96.0); MONO # 0.8 10^3/uL (0.0-0.8); MONO % 11.7 % (0.0-5.0); NEUTROPHILS # 4.3 10^3/uL (1.8-7.7); NEUTROPHILS % 64.9 % (36.0-66.0); PLATELET COUNT, AUTOMATED 242 10^3/uL (150-450); RED BLOOD COUNT 2.82 10^6/uL (4.30-6.10); RED CELL DISTRIBUTION WIDTH 14.8 % (11.5-14.5); WHITE BLOOD COUNT 6.6 10^3/uL (4.0-10.0)
[2017-06-05 06:25] LABS: ANION GAP 10 MEQ/L (8-16); BLOOD UREA NITROGEN 32 MG/DL (7-18); CALCIUM LEVEL 8.2 MG/DL (8.8-10.2); CARBON DIOXIDE LEVEL 23 MEQ/L (21-32); CHLORIDE LEVEL 108 MEQ/L (98-107); GLOMERULAR FILTRATION RATE 24.5 (>42); GLUCOSE, FASTING 100 MG/DL (70-100); MAGNESIUM LEVEL 2.3 MG/DL (1.8-2.4); POTASSIUM SERUM 4.4 MEQ/L (3.5-5.1); SODIUM LEVEL 141 MEQ/L (136-145)
[2017-06-05] MEDS: amLODIPine 5 MG TAB PO (08:26)
[2017-06-05] MEDS: THIAMINE 100 MG TAB PO (08:26)
[2017-06-05] MEDS: ALLOPURINOL 300 MG TAB PO (08:27)
[2017-06-05] MEDS: FERROUS SULFATE 325MG TAB PO (08:27)
[2017-06-05] MEDS: SYMBICORT 160/4.5MCG INHALER 6GM INH ×2 (08:48→19:13)
[2017-06-05] MEDS ORDERED: PROPOFOL 200 MG/20 ML VIAL As Ordered (15:10)
[2017-06-05] MEDS ORDERED: MIDAZOLAM INJ 2 MG/2 ML VIAL (J2250) As Ordered (15:10)
[2017-06-05] MEDS ORDERED: LIDOCAINE 2% INJ 100 MG/5 ML SDV (FOR ANES.) As Ordered (15:10)
[2017-06-05] MEDS ORDERED: fentaNYL 100 MCG/2 ML INJECTION (J3010) As Ordered ×2 (15:11→16:50)
[2017-06-05] MEDS ORDERED: PHENYLephrine HCL 500 MCG/5 ML (100MCG/ML) SYRINGE (J2370) As Ordered ×2 (16:43→17:08)
[2017-06-05] MEDS ORDERED: ePHEDrine SULFATE 25 MG/5 ML(5MG/ML) SYRINGE As Ordered (16:44)
[2017-06-05] MEDS: LevoFLOXacin IV 500 MG in APPROPRIATE DILUENT 1 EA IV (16:44)
[2017-06-05] MEDS: LevoFLOXacin(LEVAQUIN)500 MG/100 ML BAG (J1956) As Ordered (16:44)
[2017-06-05] MEDS ORDERED: ONDANSETRON 4MG/2ML VIAL (J2405) As Ordered (17:00)
[2017-06-05] MEDS ORDERED: ONDANSETRON 4MG/2ML VIAL (J2405) IV (18:00)
[2017-06-05] MEDS: LR 1,000 ML IV (18:00)
[2017-06-05] MEDS ORDERED: fentaNYL 100 MCG/2 ML INJECTION (J3010) IV (18:00)
[2017-06-05] MEDS ORDERED: NORCO, ANEXSIA 5/325MG TABLET (HYDROcodone/ACETAMINOPHEN) PO (18:00)
[2017-06-05] MEDS: ATORVASTATIN 20 MG TAB PO (20:22)
[2017-06-05] MEDS: OMEPRAZOLE 20 MG CAP PO (20:22)
[2017-06-05] MEDS: METOPROLOL TART 50 MG TAB PO (20:22)
[2017-06-06 06:21] LABS: BASO % 0.4 % (0.0-1.0); EOS # 0.3 10^3/uL (0.0-0.50); HEMOGLOBIN 9.1 g/dl (14.0-18.0); IMMATURE GRANULOCYTE % 0.9 % (0-3.0); LYMPH % 14.8 % (24.0-44.0); MEAN CORPUSCULAR HEMOGLOBIN 32.9 pg (27.0-33.0); MEAN CORPUSCULAR HGB CONC 32.5 g/dl (32.0-36.5); MEAN CORPUSCULAR VOLUME 101.1 fl (80.0-96.0); MONO # 0.7 10^3/uL (0.0-0.8); MONO % 9.5 % (0.0-5.0); NEUTROPHILS # 4.7 10^3/uL (1.8-7.7); NEUTROPHILS % 69.4 % (36.0-66.0); PLATELET COUNT, AUTOMATED 242 10^3/uL (150-450); RED BLOOD COUNT 2.77 10^6/uL (4.30-6.10); RED CELL DISTRIBUTION WIDTH 14.4 % (11.5-14.5); WHITE BLOOD COUNT 6.8 10^3/uL (4.0-10.0)
[2017-06-06 06:31] LABS: ANION GAP 8 MEQ/L (8-16); BLOOD UREA NITROGEN 34 MG/DL (7-18); CALCIUM LEVEL 8.1 MG/DL (8.8-10.2); CARBON DIOXIDE LEVEL 23 MEQ/L (21-32); CHLORIDE LEVEL 108 MEQ/L (98-107); CREATININE FOR GFR 2.63 MG/DL (0.70-1.30); GLOMERULAR FILTRATION RATE 25.3 (>42); GLUCOSE, FASTING 92 MG/DL (70-100); POTASSIUM SERUM 4.8 MEQ/L (3.5-5.1); SODIUM LEVEL 139 MEQ/L (136-145)
[2017-06-06] MEDS: SYMBICORT 160/4.5MCG INHALER 6GM INH (08:00)
[2017-06-06] MEDS: ALLOPURINOL 300 MG TAB PO (08:41)
[2017-06-06] MEDS: THIAMINE 100 MG TAB PO (08:41)
[2017-06-06] MEDS: FERROUS SULFATE 325MG TAB PO (08:41)
[2017-06-06] MEDS: amLODIPine 5 MG TAB PO (09:00)
== END 2017-06-06 15:30 | disposition home or self-care (01) | DRG 715 ==
LOC: M ED 08:38 → M ED INP 17:24 → M MSPAV 20:12
PROC: 0T5B8ZZ Destruction of Bladder, Via Natural or Artificial Opening Endoscopic (ICD-10-PCS; principal; 2017-06-05 13:03)
PROC: 30233N1 Transfusion of Nonautologous Red Blood Cells into Peripheral Vein, Percutaneous Approach (ICD-10-PCS; 2017-06-05 16:23)
PROC: 0TCB8ZZ Extirpation of Matter from Bladder, Via Natural or Artificial Opening Endoscopic (ICD-10-PCS; 2017-06-05 16:23)
DX: C61 Malignant neoplasm of prostate (principal); N17.9 Acute kidney failure, unspecified; N18.4 Chronic kidney disease, stage 4 (severe); D62 Acute posthemorrhagic anemia; N39.0 Urinary tract infection, site not specified; N30.41 Irradiation cystitis with hematuria; C67.9 Malignant neoplasm of bladder, unspecified; K21.9 Gastro-esophageal reflux disease without esophagitis; M10.9 Gout, unspecified; I12.9 Hypertensive chronic kidney disease with stage 1 through stage 4 chronic kidney disease, or unspecified chronic kidney disease; I25.10 Atherosclerotic heart disease of native coronary artery without angina pectoris; N40.0 Benign prostatic hyperplasia without lower urinary tract symptoms; R31.0 Gross hematuria; B96.5 Pseudomonas (aeruginosa) (mallei) (pseudomallei) as the cause of diseases classified elsewhere; Z79.899 Other long term (current) drug therapy; Z79.82 Long term (current) use of aspirin; Z87.891 Personal history of nicotine dependence; J44.9 Chronic obstructive pulmonary disease, unspecified; E78.5 Hyperlipidemia, unspecified; N13.5 Crossing vessel and stricture of ureter without hydronephrosis

== ENCOUNTER → 2017-07-19 | Outpatient (CLI) | payer OTHER | LOC: M RAD 08:25 | DX: R33.9 Retention of urine, unspecified (principal); R31.0 Gross hematuria; Z85.51 Personal history of malignant neoplasm of bladder; Z85.46 Personal history of malignant neoplasm of prostate; N28.1 Cyst of kidney, acquired; K57.90 Diverticulosis of intestine, part unspecified, without perforation or abscess without bleeding | CPT/HCPCS: 74176 ==

== ENCOUNTER → 2017-08-02 | Outpatient (CLI) | payer OTHER ==
[2017-08-02 18:45] LABS: ANION GAP 8 MEQ/L (8-16); BLOOD UREA NITROGEN 50 MG/DL (7-18); CALCIUM LEVEL 8.5 MG/DL (8.8-10.2); CARBON DIOXIDE LEVEL 23 MEQ/L (21-32); CHLORIDE LEVEL 109 MEQ/L (98-107); CREATININE FOR GFR 3.27 MG/DL (0.70-1.30); GLOMERULAR FILTRATION RATE 19.7 (>42); GLUCOSE, FASTING 96 MG/DL (70-100); POTASSIUM SERUM 4.8 MEQ/L (3.5-5.1); SODIUM LEVEL 140 MEQ/L (136-145)
== END ==
LOC: M SMT 11:15
DX: N13.30 Unspecified hydronephrosis (principal)
CPT/HCPCS: 80048

== ENCOUNTER → 2017-08-09 | Outpatient (CLI) | payer OTHER ==
[~2017-08-09] MED LIST changes: -/THIA10TA PO; -ALBU17IN; -ALBU17IN INH; -ALLO100T OR; -ALLO15TA; -ALLO15TA PO; -ASPI325T OR; -ATOR40TA75 PO; -B COCAP5 PO; -CIPR-249 PO; -CIPR250T3 PO; -CIPR500T3 PO; -DOXY100C37; -FERR1TAB8 PO; -FLOM5CAP PO; -FOLI1TAB PO; -FOLI1TAB4 PO; -FURO40TA2; -FURO40TA2 PO; +FUROSEMIDE 20 MG/2 ML VIAL (J1940) As Ordered; -HYDR-3911; -HYDR-3911 PO; -HYDR12.55 PO; -INDO50CA2 OR; -IRON CR PO; -LISI40TA OR; -LOPR50TA OR; -LOSA50TA20 PO; -MAGN500T5 PO; -METO50TA7; -METO50TA7 PO; -MULTIVIT PO; -NORV5TAB PO; -OMEP20CA3 PO; -OMEP20TA7 OR; -PERC5TAB8 PO; -POTASSIUM GLUCONATE PO; -SIMV20TA2; -SIMV20TA2 OR; -SIMVPOW2 PO; -SYMB16INH INH; -SYMBICORT; -THIA100TA PO; -TYLE650T35 PO; -VITA200016 PO; -VITATAB11 PO; -VITMTA PO; -ZOCO20TA PO; -ZYLO300T4 PO; -[UNRECOGNIZED DRUG - CODE] PO
== END ==
LOC: M RAD 07:43
DX: N13.30 Unspecified hydronephrosis (principal)
CPT/HCPCS: J1940

== ENCOUNTER → 2017-11-08 | Outpatient (REF) | payer OTHER | LOC: M SMT 16:59 | DX: N39.0 Urinary tract infection, site not specified (principal) | CPT/HCPCS: 87186 ==

== ENCOUNTER 2017-12-06 09:43 | Inpatient (IN) | payer OTHER ==
[2017-12-06] MEDS: IPRATROPIUM 0.5MG/ALBUTEROL 2.5MG INH SOL UD 3ML (DUONEB)(J7620) NEB ×3 (10:28→20:37)
[2017-12-06 10:37] LABS: VENOUS BASE EXCESS -5.1 (-2.0-2.0); VENOUS HCO3 20.5 MEQ/L (23.0-27.0); VENOUS O2 SATURATION 54.6 % (60.0-80.0); VENOUS PARTIAL PRESSURE CO2 39.9 mmHg (38.0-50.0); VENOUS PARTIAL PRESSURE O2 30.8 mmHg (30.0-50.0); VENOUS PH 7.328 UNITS (7.330-7.430); VENOUS STANDARD HCO3 19.5 MEQ/L; VENOUS TOTAL CO2 21.7 MEQ/L (24.0-28.0)
[2017-12-06 10:38] LABS: BASO % 0.1 % (0.0-1.0); EOS # 0.1 10^3/uL (0.0-0.50); EOS % 0.9 % (0.0-3.0); HEMATOCRIT 32.1 % (42.0-52.0); HEMOGLOBIN 10.4 g/dl (13.5-17.5); IMMATURE GRANULOCYTE % 0.7 % (0-3.0); LYMPH # 0.5 10^3/uL (1.5-4.5); LYMPH % 5.8 % (24.0-44.0); MEAN CORPUSCULAR HEMOGLOBIN 32.8 pg (27.0-33.0); MEAN CORPUSCULAR HGB CONC 32.4 g/dl (32.0-36.5); MEAN CORPUSCULAR VOLUME 101.3 fl (80.0-96.0); MONO # 0.7 10^3/uL (0.0-0.8); MONO % 7.9 % (0.0-5.0); NEUTROPHILS # 7.5 10^3/uL (1.8-7.7); NEUTROPHILS % 84.6 % (36.0-66.0); PLATELET COUNT, AUTOMATED 246 10^3/uL (150-450); RED BLOOD COUNT 3.17 10^6/uL (4.30-6.10); WHITE BLOOD COUNT 8.8 10^3/uL (4.0-10.0)
[2017-12-06 12:39] LABS: LACTIC ACID SEPSIS PROTOCOL 1.4 MMOL/L (0.4-2.0)
[2017-12-06] MEDS: AZITHROMYCIN 250 MG TAB PO (12:51)
[2017-12-06] MEDS: cefTRIAXone SOD 1 GM in D5W MINI-BAG PLUS 50 ML IV (12:53)
[2017-12-06 12:54] LABS: CHLORIDE LEVEL 105 MEQ/L (98-107); GLUCOSE, FASTING 99 MG/DL (70-100); SODIUM LEVEL 137 MEQ/L (136-145); TROPONIN I < 0.02 NG/ML (< 0.10)
[2017-12-06] MEDS ORDERED: ALBUTEROL SULFATE 2.5 MG/0.5 ML INH NEB SOLN INH (14:00)
[2017-12-06] MEDS: NS 1,000 ML IV (14:11)
[2017-12-06 14:15] LABS: ANION GAP 15 MEQ/L (8-16); BLOOD UREA NITROGEN 63 MG/DL (7-18); CALCIUM LEVEL 8.1 MG/DL (8.8-10.2); CARBON DIOXIDE LEVEL 18 MEQ/L (21-32); CPK CREATINE PHOSPHOKINASE 340 U/L (39-308); CREATININE FOR GFR 3.35 MG/DL (0.70-1.30); GLOMERULAR FILTRATION RATE 19.1 (>42); MB/CK RELATIVE INDEX 1.56 (< OR =4); NT-PRO BNP 900 PG/ML (<450)
[2017-12-06] MEDS: guaiFENesin ER 600 MG TAB PO ×2 (15:32→21:23)
[2017-12-06] MEDS: HEPARIN SOD (PORCINE) 5000 UNITS/ML VIAL SC ×2 (15:32→21:23)
[2017-12-06] MEDS: LevoFLOXacin IV 750 MG in APPROPRIATE DILUENT 1 EA IV (15:32)
[2017-12-06 16:34] LABS: CPK CREATINE PHOSPHOKINASE 352 U/L (39-308); MB/CK RELATIVE INDEX 1.25 (< OR =4); TROPONIN I < 0.02 NG/ML (< 0.10)
[2017-12-06] MEDS: SYMBICORT 160/4.5MCG INHALER 6GM INH (20:00)
[2017-12-06] MEDS: METOPROLOL TART 50 MG TAB PO (21:22)
[2017-12-06] MEDS: ATORVASTATIN 20 MG TAB PO (21:23)
[2017-12-06] MEDS: TAMSULOSIN 0.4 MG CAP PO (21:23)
[2017-12-06] MEDS: OMEPRAZOLE 20 MG CAP PO (21:23)
[2017-12-06] MEDS: VITAMIN B COMPLEX/VIT C CAP PO (21:24)
[2017-12-07] MEDS: IPRATROPIUM 0.5MG/ALBUTEROL 2.5MG INH SOL UD 3ML (DUONEB)(J7620) NEB ×7 (00:17→23:28)
[2017-12-07 00:50] LABS: CPK CREATINE PHOSPHOKINASE 440 U/L (39-308); MB/CK RELATIVE INDEX 1.27 (< OR =4); TROPONIN I 0.03 NG/ML (< 0.10)
[2017-12-07] MEDS: HEPARIN SOD (PORCINE) 5000 UNITS/ML VIAL SC ×3 (05:57→22:24)
[2017-12-07] MEDS: SYMBICORT 160/4.5MCG INHALER 6GM INH ×2 (07:48→20:38)
[2017-12-07 08:11] LABS: BASO % 0.1 % (0.0-1.0); EOS # 0.1 10^3/uL (0.0-0.50); EOS % 0.6 % (0.0-3.0); HEMATOCRIT 28.5 % (42.0-52.0); HEMOGLOBIN 9.4 g/dl (13.5-17.5); IMMATURE GRANULOCYTE % 0.5 % (0-3.0); LYMPH # 0.7 10^3/uL (1.5-4.5); LYMPH % 9.2 % (24.0-44.0); MEAN CORPUSCULAR HEMOGLOBIN 32.8 pg (27.0-33.0); MEAN CORPUSCULAR VOLUME 99.3 fl (80.0-96.0); MONO # 0.9 10^3/uL (0.0-0.8); MONO % 10.9 % (0.0-5.0); NEUTROPHILS # 6.2 10^3/uL (1.8-7.7); NEUTROPHILS % 78.7 % (36.0-66.0); PLATELET COUNT, AUTOMATED 216 10^3/uL (150-450); RED BLOOD COUNT 2.87 10^6/uL (4.30-6.10); RED CELL DISTRIBUTION WIDTH 14.8 % (11.5-14.5); WHITE BLOOD COUNT 7.9 10^3/uL (4.0-10.0)
[2017-12-07] MEDS: FERROUS SULFATE 325MG TAB PO (08:12)
[2017-12-07] MEDS: THIAMINE 100 MG TAB PO (08:12)
[2017-12-07] MEDS: ALLOPURINOL 300 MG TAB PO (08:12)
[2017-12-07] MEDS: VITAMIN D 1,000 INTERNATIONAL UNITS TABLET PO (08:12)
[2017-12-07] MEDS: FOLIC ACID 1 MG TAB PO (08:12)
[2017-12-07] MEDS: ASPIRIN ENTERIC 325 MG TAB PO (08:13)
[2017-12-07] MEDS: guaiFENesin ER 600 MG TAB PO ×2 (08:13→22:25)
[2017-12-07 08:48] LABS: ANION GAP 14 MEQ/L (8-16); BLOOD UREA NITROGEN 55 MG/DL (7-18); CALCIUM LEVEL 7.4 MG/DL (8.8-10.2); CARBON DIOXIDE LEVEL 16 MEQ/L (21-32); CHLORIDE LEVEL 106 MEQ/L (98-107); CPK CREATINE PHOSPHOKINASE 399 U/L (39-308); CREATININE FOR GFR 3.04 MG/DL (0.70-1.30); GLOMERULAR FILTRATION RATE 21.3 (>42); GLUCOSE, FASTING 99 MG/DL (70-100); MAGNESIUM LEVEL 2.3 MG/DL (1.8-2.4); MB/CK RELATIVE INDEX 1.18 (< OR =4); POTASSIUM SERUM 3.6 MEQ/L (3.5-5.1); SODIUM LEVEL 136 MEQ/L (136-145); TROPONIN I 0.02 NG/ML (< 0.10)
[2017-12-07] MEDS: ACETAMINOPHEN TAB 650MG DOSE (2X325MG) PO (17:39)
[2017-12-07 17:56] LABS: AMORPHOUS SEDIMENT SMALL (NEGATIVE); APPEARANCE, URINE CLOUDY (CLEAR); BACTERIA, URINE AUTO 1+ (NEGATIVE); BILIRUBIN, URINE AUTO NEGATIVE (NEGATIVE); BLOOD, URINE BLOOD 2+ (NEGATIVE); COLOR, URINE YELLOW (YELLOW); GLUCOSE, URINE (UA) AUTO NEGATIVE (NEGATIVE); KETONE, URINE AUTO NEGATIVE (NEGATIVE); LEUKOCYTE ESTERASE, URINE AUTO 2+ (NEGATIVE); MUCUS, URINE SMALL (NEGATIVE); NITRITE, URINE AUTO NEGATIVE (NEGATIVE); PROTEIN, URINE AUTO 1+ mg/dL (NEGATIVE); RBC, URINE AUTO 19 /HPF (0-3); SPECIFIC GRAVITY URINE AUTO 1.009 (1.002-1.035); SQUAMOUS EPITHELIAL CELL UR AU 0 /HPF (0-6); UROBILINOGEN, URINE AUTO 0.2 mg/dL (0.0-2.0); WBC, URINE AUTO 10 /HPF (0-3)
[2017-12-07] MEDS: OMEPRAZOLE 20 MG CAP PO (22:24)
[2017-12-07] MEDS: TAMSULOSIN 0.4 MG CAP PO (22:25)
[2017-12-07] MEDS: VITAMIN B COMPLEX/VIT C CAP PO (22:25)
[2017-12-07] MEDS: ATORVASTATIN 20 MG TAB PO (22:25)
[2017-12-07] MEDS: METOPROLOL TART 50 MG TAB PO (22:28)
[2017-12-08] MEDS: IPRATROPIUM 0.5MG/ALBUTEROL 2.5MG INH SOL UD 3ML (DUONEB)(J7620) NEB ×5 (02:59→20:00)
[2017-12-08 05:29] LABS: EOS # 0.1 10^3/uL (0.0-0.50); HEMOGLOBIN 9.6 g/dl (13.5-17.5); IMMATURE GRANULOCYTE % 0.6 % (0-3.0); LYMPH # 0.6 10^3/uL (1.5-4.5); LYMPH % 7.7 % (24.0-44.0); MEAN CORPUSCULAR HEMOGLOBIN 32.5 pg (27.0-33.0); MEAN CORPUSCULAR HGB CONC 33.1 g/dl (32.0-36.5); MEAN CORPUSCULAR VOLUME 98.3 fl (80.0-96.0); MONO # 0.8 10^3/uL (0.0-0.8); MONO % 9.6 % (0.0-5.0); NEUTROPHILS # 6.7 10^3/uL (1.8-7.7); NEUTROPHILS % 81.1 % (36.0-66.0); PLATELET COUNT, AUTOMATED 224 10^3/uL (150-450); RED BLOOD COUNT 2.95 10^6/uL (4.30-6.10); RED CELL DISTRIBUTION WIDTH 14.7 % (11.5-14.5); WHITE BLOOD COUNT 8.2 10^3/uL (4.0-10.0)
[2017-12-08] MEDS: HEPARIN SOD (PORCINE) 5000 UNITS/ML VIAL SC ×3 (05:38→21:05)
[2017-12-08 06:02] LABS: ANION GAP 14 MEQ/L (8-16); BLOOD UREA NITROGEN 48 MG/DL (7-18); CALCIUM LEVEL 8.1 MG/DL (8.8-10.2); CARBON DIOXIDE LEVEL 17 MEQ/L (21-32); CHLORIDE LEVEL 106 MEQ/L (98-107); CREATININE FOR GFR 2.96 MG/DL (0.70-1.30); GLUCOSE, FASTING 124 MG/DL (70-100); MAGNESIUM LEVEL 2.2 MG/DL (1.8-2.4); POTASSIUM SERUM 3.5 MEQ/L (3.5-5.1); SODIUM LEVEL 137 MEQ/L (136-145)
[2017-12-08] MEDS: SYMBICORT 160/4.5MCG INHALER 6GM INH ×2 (07:35→20:00)
[2017-12-08] MEDS ORDERED: PILL CRUSHER/CUTTER 1 EACH XX (09:45)
[2017-12-08] MEDS: VITAMIN D 1,000 INTERNATIONAL UNITS TABLET PO (09:46)
[2017-12-08] MEDS: guaiFENesin ER 600 MG TAB PO ×2 (09:46→21:05)
[2017-12-08] MEDS: ASPIRIN ENTERIC 325 MG TAB PO (09:46)
[2017-12-08] MEDS: FERROUS SULFATE 325MG TAB PO (09:46)
[2017-12-08] MEDS: FOLIC ACID 1 MG TAB PO (09:46)
[2017-12-08] MEDS: THIAMINE 100 MG TAB PO (11:11)
[2017-12-08] MEDS: ALLOPURINOL 300 MG TAB PO (11:12)
[2017-12-08] MEDS: LevoFLOXacin IV 750 MG in APPROPRIATE DILUENT 1 EA IV (15:11)
[2017-12-08] MEDS: METOPROLOL TART 50 MG TAB PO (21:04)
[2017-12-08] MEDS: VITAMIN B COMPLEX/VIT C CAP PO (21:04)
[2017-12-08] MEDS: ATORVASTATIN 20 MG TAB PO (21:04)
[2017-12-08] MEDS: TAMSULOSIN 0.4 MG CAP PO (21:05)
[2017-12-08] MEDS: OMEPRAZOLE 20 MG CAP PO (21:05)
[2017-12-09] MEDS: IPRATROPIUM 0.5MG/ALBUTEROL 2.5MG INH SOL UD 3ML (DUONEB)(J7620) NEB ×6 (00:39→20:31)
[2017-12-09 04:37] LABS: BASO % 0.1 % (0.0-1.0); EOS # 0.1 10^3/uL (0.0-0.50); EOS % 1.6 % (0.0-3.0); HEMATOCRIT 28.5 % (42.0-52.0); HEMOGLOBIN 9.2 g/dl (13.5-17.5); IMMATURE GRANULOCYTE % 0.6 % (0-3.0); LYMPH # 0.6 10^3/uL (1.5-4.5); LYMPH % 7.7 % (24.0-44.0); MEAN CORPUSCULAR HEMOGLOBIN 32.1 pg (27.0-33.0); MEAN CORPUSCULAR HGB CONC 32.3 g/dl (32.0-36.5); MEAN CORPUSCULAR VOLUME 99.3 fl (80.0-96.0); MONO # 0.7 10^3/uL (0.0-0.8); MONO % 8.3 % (0.0-5.0); NEUTROPHILS # 6.6 10^3/uL (1.8-7.7); NEUTROPHILS % 81.7 % (36.0-66.0); PLATELET COUNT, AUTOMATED 224 10^3/uL (150-450); RED BLOOD COUNT 2.87 10^6/uL (4.30-6.10); RED CELL DISTRIBUTION WIDTH 14.6 % (11.5-14.5)
[2017-12-09 05:09] LABS: ANION GAP 10 MEQ/L (8-16); BLOOD UREA NITROGEN 50 MG/DL (7-18); CALCIUM LEVEL 7.8 MG/DL (8.8-10.2); CARBON DIOXIDE LEVEL 20 MEQ/L (21-32); CHLORIDE LEVEL 105 MEQ/L (98-107); CREATININE FOR GFR 3.06 MG/DL (0.70-1.30); GLOMERULAR FILTRATION RATE 21.2 (>42); GLUCOSE, FASTING 116 MG/DL (70-100); MAGNESIUM LEVEL 2.1 MG/DL (1.8-2.4); POTASSIUM SERUM 3.9 MEQ/L (3.5-5.1); SODIUM LEVEL 135 MEQ/L (136-145)
[2017-12-09] MEDS: HEPARIN SOD (PORCINE) 5000 UNITS/ML VIAL SC ×3 (05:30→21:51)
[2017-12-09] MEDS: SYMBICORT 160/4.5MCG INHALER 6GM INH ×2 (07:28→20:31)
[2017-12-09] MEDS: ALLOPURINOL 300 MG TAB PO (09:08)
[2017-12-09] MEDS: ASPIRIN ENTERIC 325 MG TAB PO (09:08)
[2017-12-09] MEDS: FERROUS SULFATE 325MG TAB PO (09:08)
[2017-12-09] MEDS: VITAMIN D 1,000 INTERNATIONAL UNITS TABLET PO (09:08)
[2017-12-09] MEDS: guaiFENesin ER 600 MG TAB PO ×2 (09:08→21:52)
[2017-12-09] MEDS: THIAMINE 100 MG TAB PO (09:08)
[2017-12-09] MEDS: FOLIC ACID 1 MG TAB PO (09:08)
[2017-12-09] MEDS: ATORVASTATIN 20 MG TAB PO (21:52)
[2017-12-09] MEDS: TAMSULOSIN 0.4 MG CAP PO (21:52)
[2017-12-09] MEDS: VITAMIN B COMPLEX/VIT C CAP PO (21:52)
[2017-12-09] MEDS: METOPROLOL TART 50 MG TAB PO (21:53)
[2017-12-09] MEDS: OMEPRAZOLE 20 MG CAP PO (21:53)
[2017-12-10] MEDS ORDERED: SLF 3 ML SYR IV (00:15)
[2017-12-10] MEDS: IPRATROPIUM 0.5MG/ALBUTEROL 2.5MG INH SOL UD 3ML (DUONEB)(J7620) NEB ×4 (03:57→12:36)
[2017-12-10 04:54] LABS: BASO % 0.1 % (0.0-1.0); EOS # 0.2 10^3/uL (0.0-0.50); EOS % 1.9 % (0.0-3.0); HEMATOCRIT 28.9 % (42.0-52.0); HEMOGLOBIN 9.3 g/dl (13.5-17.5); IMMATURE GRANULOCYTE % 0.8 % (0-3.0); LYMPH # 0.9 10^3/uL (1.5-4.5); LYMPH % 10.2 % (24.0-44.0); MEAN CORPUSCULAR HEMOGLOBIN 32.2 pg (27.0-33.0); MEAN CORPUSCULAR HGB CONC 32.2 g/dl (32.0-36.5); MONO # 0.7 10^3/uL (0.0-0.8); MONO % 8.1 % (0.0-5.0); NEUTROPHILS # 6.7 10^3/uL (1.8-7.7); NEUTROPHILS % 78.9 % (36.0-66.0); PLATELET COUNT, AUTOMATED 236 10^3/uL (150-450); RED BLOOD COUNT 2.89 10^6/uL (4.30-6.10); RED CELL DISTRIBUTION WIDTH 14.6 % (11.5-14.5); WHITE BLOOD COUNT 8.4 10^3/uL (4.0-10.0)
[2017-12-10 05:08] LABS: ANION GAP 14 MEQ/L (8-16); BLOOD UREA NITROGEN 50 MG/DL (7-18); CALCIUM LEVEL 8.3 MG/DL (8.8-10.2); CARBON DIOXIDE LEVEL 16 MEQ/L (21-32); CHLORIDE LEVEL 106 MEQ/L (98-107); CREATININE FOR GFR 3.12 MG/DL (0.70-1.30); GLOMERULAR FILTRATION RATE 20.7 (>42); GLUCOSE, FASTING 106 MG/DL (70-100); MAGNESIUM LEVEL 2.2 MG/DL (1.8-2.4); POTASSIUM SERUM 4.1 MEQ/L (3.5-5.1); SODIUM LEVEL 136 MEQ/L (136-145)
[2017-12-10] MEDS: HEPARIN SOD (PORCINE) 5000 UNITS/ML VIAL SC ×3 (06:09→22:00)
[2017-12-10] MEDS: SLF 3 ML SYR IV ×3 (06:09→22:00)
[2017-12-10] MEDS: SYMBICORT 160/4.5MCG INHALER 6GM INH ×2 (07:51→20:11)
[2017-12-10] MEDS: FERROUS SULFATE 325MG TAB PO (09:00)
[2017-12-10] MEDS: guaiFENesin ER 600 MG TAB PO ×2 (09:31→22:20)
[2017-12-10] MEDS: VITAMIN D 1,000 INTERNATIONAL UNITS TABLET PO (09:31)
[2017-12-10] MEDS: ASPIRIN ENTERIC 325 MG TAB PO (09:31)
[2017-12-10] MEDS: ALLOPURINOL 300 MG TAB PO (09:31)
[2017-12-10] MEDS: THIAMINE 100 MG TAB PO (09:31)
[2017-12-10] MEDS: FOLIC ACID 1 MG TAB PO (09:31)
[2017-12-10] MEDS ORDERED: LEVALBUTEROL 1.25 MG/0.5 ML CONCENTRATE NEB INH (14:15)
[2017-12-10 14:36] LABS: ABG HCO3 17.1 MEQ/L (22.0-26.0); ABG PARTIAL PRESSURE CO2 26.4 mmHg (35.0-45.0); ABG PARTIAL PRESSURE O2 70.6 mmHg (75.0-100.0); ABG STANDARD HCO3 19.4 MEQ/L (22.0-26.0); ABG TOTAL CO2 17.9 MEQ/L (23.0-31.0); ABG pH (ARTERIAL) 7.429 UNITS (7.350-7.450)
[2017-12-10 14:37] LABS: ABG SITE RT RADIAL
[2017-12-10] MEDS: LevoFLOXacin IV 750 MG in APPROPRIATE DILUENT 1 EA IV (15:33)
[2017-12-10] MEDS: LEVALBUTEROL 1.25 MG/0.5 ML CONCENTRATE NEB INH ×2 (16:55→20:12)
[2017-12-10] MEDS: VITAMIN B COMPLEX/VIT C CAP PO (22:20)
[2017-12-10] MEDS: ATORVASTATIN 20 MG TAB PO (22:20)
[2017-12-10] MEDS: METOPROLOL TART 50 MG TAB PO (22:21)
[2017-12-10] MEDS: OMEPRAZOLE 20 MG CAP PO (22:21)
[2017-12-10] MEDS: TAMSULOSIN 0.4 MG CAP PO (22:21)
[2017-12-11 06:05] LABS: BASO % 0.1 % (0.0-1.0); EOS # 0.2 10^3/uL (0.0-0.50); EOS % 2.5 % (0.0-3.0); HEMATOCRIT 28.6 % (42.0-52.0); HEMOGLOBIN 9.3 g/dl (13.5-17.5); IMMATURE GRANULOCYTE % 0.7 % (0-3.0); LYMPH # 0.7 10^3/uL (1.5-4.5); LYMPH % 9.6 % (24.0-44.0); MEAN CORPUSCULAR HGB CONC 32.5 g/dl (32.0-36.5); MEAN CORPUSCULAR VOLUME 98.3 fl (80.0-96.0); MONO # 0.7 10^3/uL (0.0-0.8); MONO % 8.8 % (0.0-5.0); NEUTROPHILS # 5.9 10^3/uL (1.8-7.7); NEUTROPHILS % 78.3 % (36.0-66.0); PLATELET COUNT, AUTOMATED 250 10^3/uL (150-450); RED BLOOD COUNT 2.91 10^6/uL (4.30-6.10); RED CELL DISTRIBUTION WIDTH 14.7 % (11.5-14.5); WHITE BLOOD COUNT 7.5 10^3/uL (4.0-10.0)
[2017-12-11 06:30] LABS: ANION GAP 14 MEQ/L (8-16); BLOOD UREA NITROGEN 54 MG/DL (7-18); CALCIUM LEVEL 8.5 MG/DL (8.8-10.2); CARBON DIOXIDE LEVEL 17 MEQ/L (21-32); CHLORIDE LEVEL 106 MEQ/L (98-107); GLOMERULAR FILTRATION RATE 20.1 (>42); GLUCOSE, FASTING 108 MG/DL (70-100); MAGNESIUM LEVEL 2.2 MG/DL (1.8-2.4); POTASSIUM SERUM 4.3 MEQ/L (3.5-5.1); SODIUM LEVEL 137 MEQ/L (136-145)
[2017-12-11] MEDS: LEVALBUTEROL 1.25 MG/0.5 ML CONCENTRATE NEB INH ×4 (07:10→20:00)
[2017-12-11] MEDS: SYMBICORT 160/4.5MCG INHALER 6GM INH ×2 (07:10→20:15)
[2017-12-11] MEDS: HEPARIN SOD (PORCINE) 5000 UNITS/ML VIAL SC ×3 (07:30→20:36)
[2017-12-11] MEDS: SLF 3 ML SYR IV ×3 (07:30→23:03)
[2017-12-11] MEDS: THIAMINE 100 MG TAB PO (09:36)
[2017-12-11] MEDS: FOLIC ACID 1 MG TAB PO (09:36)
[2017-12-11] MEDS: ASPIRIN ENTERIC 325 MG TAB PO (09:36)
[2017-12-11] MEDS: guaiFENesin ER 600 MG TAB PO ×2 (09:36→20:34)
[2017-12-11] MEDS: VITAMIN D 1,000 INTERNATIONAL UNITS TABLET PO (09:36)
[2017-12-11] MEDS: FERROUS SULFATE 325MG TAB PO (09:36)
[2017-12-11] MEDS: ALLOPURINOL 300 MG TAB PO (09:38)
[2017-12-11] MEDS: VITAMIN B COMPLEX/VIT C CAP PO (20:34)
[2017-12-11] MEDS: OMEPRAZOLE 20 MG CAP PO (20:34)
[2017-12-11] MEDS: TAMSULOSIN 0.4 MG CAP PO (20:35)
[2017-12-11] MEDS: METOPROLOL TART 50 MG TAB PO (20:35)
[2017-12-11] MEDS: ATORVASTATIN 20 MG TAB PO (20:35)
[2017-12-12] MEDS: HEPARIN SOD (PORCINE) 5000 UNITS/ML VIAL SC ×3 (05:29→20:23)
[2017-12-12] MEDS: SLF 3 ML SYR IV ×3 (05:29→20:23)
[2017-12-12 06:14] LABS: BASO % 0.2 % (0.0-1.0); EOS # 0.3 10^3/uL (0.0-0.50); EOS % 3.9 % (0.0-3.0); HEMATOCRIT 27.8 % (42.0-52.0); HEMOGLOBIN 9.1 g/dl (13.5-17.5); IMMATURE GRANULOCYTE % 0.7 % (0-3.0); LYMPH # 0.7 10^3/uL (1.5-4.5); LYMPH % 7.7 % (24.0-44.0); MEAN CORPUSCULAR HEMOGLOBIN 32.3 pg (27.0-33.0); MEAN CORPUSCULAR HGB CONC 32.7 g/dl (32.0-36.5); MEAN CORPUSCULAR VOLUME 98.6 fl (80.0-96.0); MONO # 0.7 10^3/uL (0.0-0.8); MONO % 8.7 % (0.0-5.0); NEUTROPHILS # 6.7 10^3/uL (1.8-7.7); NEUTROPHILS % 78.8 % (36.0-66.0); PLATELET COUNT, AUTOMATED 260 10^3/uL (150-450); RED BLOOD COUNT 2.82 10^6/uL (4.30-6.10); RED CELL DISTRIBUTION WIDTH 14.6 % (11.5-14.5); WHITE BLOOD COUNT 8.5 10^3/uL (4.0-10.0)
[2017-12-12 06:34] LABS: ANION GAP 13 MEQ/L (8-16); BLOOD UREA NITROGEN 58 MG/DL (7-18); CALCIUM LEVEL 8.6 MG/DL (8.8-10.2); CARBON DIOXIDE LEVEL 18 MEQ/L (21-32); CHLORIDE LEVEL 107 MEQ/L (98-107); CREATININE FOR GFR 3.23 MG/DL (0.70-1.30); GLOMERULAR FILTRATION RATE 19.9 (>42); GLUCOSE, FASTING 107 MG/DL (70-100); MAGNESIUM LEVEL 2.3 MG/DL (1.8-2.4); POTASSIUM SERUM 4.2 MEQ/L (3.5-5.1); SODIUM LEVEL 138 MEQ/L (136-145)
[2017-12-12] MEDS: SYMBICORT 160/4.5MCG INHALER 6GM INH ×2 (08:09→20:58)
[2017-12-12] MEDS: LEVALBUTEROL 1.25 MG/0.5 ML CONCENTRATE NEB INH ×4 (08:10→20:00)
[2017-12-12] MEDS: guaiFENesin ER 600 MG TAB PO ×2 (09:40→20:23)
[2017-12-12] MEDS: THIAMINE 100 MG TAB PO (09:40)
[2017-12-12] MEDS: FOLIC ACID 1 MG TAB PO (09:40)
[2017-12-12] MEDS: ASPIRIN ENTERIC 325 MG TAB PO (09:40)
[2017-12-12] MEDS: FERROUS SULFATE 325MG TAB PO (09:40)
[2017-12-12] MEDS: ALLOPURINOL 300 MG TAB PO (09:40)
[2017-12-12] MEDS: VITAMIN D 1,000 INTERNATIONAL UNITS TABLET PO (09:41)
[2017-12-12] MEDS: METOPROLOL TART 50 MG TAB PO (09:41)
[2017-12-12] MEDS: LevoFLOXacin IV 750 MG in APPROPRIATE DILUENT 1 EA IV (15:17)
[2017-12-12] MEDS: ATORVASTATIN 20 MG TAB PO (20:20)
[2017-12-12] MEDS: METOPROLOL TART 25 MG TABLET PO (20:22)
[2017-12-12] MEDS: VITAMIN B COMPLEX/VIT C CAP PO (20:22)
[2017-12-12] MEDS: OMEPRAZOLE 20 MG CAP PO (20:23)
[2017-12-12] MEDS: TAMSULOSIN 0.4 MG CAP PO (20:23)
[2017-12-13 06:14] LABS: BASO % 0.4 % (0.0-1.0); EOS # 0.3 10^3/uL (0.0-0.50); EOS % 3.4 % (0.0-3.0); HEMATOCRIT 27.8 % (42.0-52.0); HEMOGLOBIN 9.1 g/dl (13.5-17.5); IMMATURE GRANULOCYTE % 0.9 % (0-3.0); LYMPH # 0.8 10^3/uL (1.5-4.5); LYMPH % 9.4 % (24.0-44.0); MEAN CORPUSCULAR HEMOGLOBIN 31.9 pg (27.0-33.0); MEAN CORPUSCULAR HGB CONC 32.7 g/dl (32.0-36.5); MEAN CORPUSCULAR VOLUME 97.5 fl (80.0-96.0); MONO # 0.8 10^3/uL (0.0-0.8); MONO % 9.4 % (0.0-5.0); NEUTROPHILS # 6.5 10^3/uL (1.8-7.7); NEUTROPHILS % 76.5 % (36.0-66.0); PLATELET COUNT, AUTOMATED 279 10^3/uL (150-450); RED BLOOD COUNT 2.85 10^6/uL (4.30-6.10); RED CELL DISTRIBUTION WIDTH 14.6 % (11.5-14.5); WHITE BLOOD COUNT 8.5 10^3/uL (4.0-10.0)
[2017-12-13] MEDS: HEPARIN SOD (PORCINE) 5000 UNITS/ML VIAL SC ×3 (06:15→20:44)
[2017-12-13] MEDS: SLF 3 ML SYR IV ×3 (06:15→20:46)
[2017-12-13 06:28] LABS: ANION GAP 12 MEQ/L (8-16); BLOOD UREA NITROGEN 64 MG/DL (7-18); CALCIUM LEVEL 8.3 MG/DL (8.8-10.2); CARBON DIOXIDE LEVEL 16 MEQ/L (21-32); CHLORIDE LEVEL 109 MEQ/L (98-107); CREATININE FOR GFR 3.36 MG/DL (0.70-1.30); GLUCOSE, FASTING 105 MG/DL (70-100); MAGNESIUM LEVEL 2.3 MG/DL (1.8-2.4); POTASSIUM SERUM 4.1 MEQ/L (3.5-5.1); SODIUM LEVEL 137 MEQ/L (136-145)
[2017-12-13] MEDS: ALLOPURINOL 300 MG TAB PO (09:03)
[2017-12-13] MEDS: FOLIC ACID 1 MG TAB PO (09:04)
[2017-12-13] MEDS: guaiFENesin ER 600 MG TAB PO ×2 (09:04→20:44)
[2017-12-13] MEDS: THIAMINE 100 MG TAB PO (09:04)
[2017-12-13] MEDS: ASPIRIN ENTERIC 325 MG TAB PO (09:04)
[2017-12-13] MEDS: VITAMIN D 1,000 INTERNATIONAL UNITS TABLET PO (09:04)
[2017-12-13] MEDS: METOPROLOL TART 25 MG TABLET PO (09:04)
[2017-12-13] MEDS: FERROUS SULFATE 325MG TAB PO (09:04)
[2017-12-13] MEDS: LEVALBUTEROL 1.25 MG/0.5 ML CONCENTRATE NEB INH ×4 (09:06→20:00)
[2017-12-13] MEDS: SYMBICORT 160/4.5MCG INHALER 6GM INH ×2 (09:06→20:31)
[2017-12-13] MEDS: OMEPRAZOLE 20 MG CAP PO (20:44)
[2017-12-13] MEDS: ATORVASTATIN 20 MG TAB PO (20:44)
[2017-12-13] MEDS: TAMSULOSIN 0.4 MG CAP PO (20:44)
[2017-12-13] MEDS: VITAMIN B COMPLEX/VIT C CAP PO (20:44)
[2017-12-13] MEDS: METOPROLOL TARTRATE 100 MG TAB PO (20:46)
[2017-12-14] MEDS: LevoFLOXacin 750 MG TABLET PO (05:50)
[2017-12-14] MEDS: SLF 3 ML SYR IV ×2 (05:51→14:15)
[2017-12-14] MEDS: HEPARIN SOD (PORCINE) 5000 UNITS/ML VIAL SC ×2 (05:51→14:00)
[2017-12-14] MEDS: SYMBICORT 160/4.5MCG INHALER 6GM INH (08:06)
[2017-12-14] MEDS: LEVALBUTEROL 1.25 MG/0.5 ML CONCENTRATE NEB INH ×3 (08:07→14:44)
[2017-12-14 08:34] LABS: HEMATOCRIT 28.5 % (42.0-52.0); HEMOGLOBIN 9.2 g/dl (13.5-17.5); MEAN CORPUSCULAR HEMOGLOBIN 32.5 pg (27.0-33.0); MEAN CORPUSCULAR HGB CONC 32.3 g/dl (32.0-36.5); MEAN CORPUSCULAR VOLUME 100.7 fl (80.0-96.0); PLATELET COUNT, AUTOMATED 309 10^3/uL (150-450); RED BLOOD COUNT 2.83 10^6/uL (4.30-6.10); RED CELL DISTRIBUTION WIDTH 14.7 % (11.5-14.5); WHITE BLOOD COUNT 8.6 10^3/uL (4.0-10.0)
[2017-12-14 08:57] LABS: ANION GAP 14 MEQ/L (8-16); BLOOD UREA NITROGEN 72 MG/DL (7-18); CALCIUM LEVEL 7.7 MG/DL (8.8-10.2); CARBON DIOXIDE LEVEL 16 MEQ/L (21-32); CHLORIDE LEVEL 108 MEQ/L (98-107); GLOMERULAR FILTRATION RATE 15.5 (>42); GLUCOSE, FASTING 100 MG/DL (70-100); MAGNESIUM LEVEL 2.4 MG/DL (1.8-2.4); POTASSIUM SERUM 4.5 MEQ/L (3.5-5.1); SODIUM LEVEL 138 MEQ/L (136-145)
[2017-12-14] MEDS: ASPIRIN ENTERIC 325 MG TAB PO (09:04)
[2017-12-14] MEDS: ALLOPURINOL 300 MG TAB PO (09:05)
[2017-12-14] MEDS: guaiFENesin ER 600 MG TAB PO (09:05)
[2017-12-14] MEDS: THIAMINE 100 MG TAB PO (09:05)
[2017-12-14] MEDS: FERROUS SULFATE 325MG TAB PO (09:05)
[2017-12-14] MEDS: FOLIC ACID 1 MG TAB PO (09:05)
[2017-12-14] MEDS: VITAMIN D 1,000 INTERNATIONAL UNITS TABLET PO (09:05)
[2017-12-14] MEDS: METOPROLOL TARTRATE 100 MG TAB PO (09:06)
[2017-12-14] MEDS: NS 0.45% 1,000 ML IV (11:40)
[2017-12-14 14:45] LABS: ANION GAP 10 MEQ/L (8-16); BLOOD UREA NITROGEN 71 MG/DL (7-18); CARBON DIOXIDE LEVEL 18 MEQ/L (21-32); CHLORIDE LEVEL 105 MEQ/L (98-107); CREATININE FOR GFR 3.88 MG/DL (0.70-1.30); GLOMERULAR FILTRATION RATE 16.1 (>42); GLUCOSE, FASTING 115 MG/DL (70-100); POTASSIUM SERUM 4.5 MEQ/L (3.5-5.1); SODIUM LEVEL 133 MEQ/L (136-145)
== END 2017-12-14 17:52 | disposition home or self-care (01) | DRG 178 ==
LOC: M ED 09:43 → M ED INP 13:33 → M PCU 19:55
DX: J15.6 Pneumonia due to other Gram-negative bacteria (principal); N18.4 Chronic kidney disease, stage 4 (severe); C79.51 Secondary malignant neoplasm of bone; C79.11 Secondary malignant neoplasm of bladder; N17.9 Acute kidney failure, unspecified; C78.01 Secondary malignant neoplasm of right lung; E87.2 Acidosis; R91.8 Other nonspecific abnormal finding of lung field; C61 Malignant neoplasm of prostate; I25.10 Atherosclerotic heart disease of native coronary artery without angina pectoris; R06.03 Acute respiratory distress; I12.9 Hypertensive chronic kidney disease with stage 1 through stage 4 chronic kidney disease, or unspecified chronic kidney disease; K21.9 Gastro-esophageal reflux disease without esophagitis; M1A.30X0 Chronic gout due to renal impairment, unspecified site, without tophus (tophi); Z96.0 Presence of urogenital implants; Z79.82 Long term (current) use of aspirin; Z79.899 Other long term (current) drug therapy; Z87.891 Personal history of nicotine dependence; Z79.51 Long term (current) use of inhaled steroids; Z92.3 Personal history of irradiation